=== PATIENT | female | born 1935 | race Caucasian/White ===

== ENCOUNTER → 2019-02-02 | Outpatient (CLI) | payer MEDICARE, BC ==
[2019-02-02 13:17] LABS: HGB 12.4 gm/dL (11.4-16.0); MCH 31.3 pg (25.0-35.0); MCHC 33.5 g/dL (31.0-37.0); MCV 93.5 fL (80.0-100.0); Mean Platelet Volume 6.4; Platelet Count 204 k/uL (150-450); RBC 3.95 m/uL (3.80-5.40); RDW 14.5 % (11.5-15.5); WBC 10.1 k/uL (3.8-10.6)
[2019-02-02 13:28] LABS: Potassium 4.8 mmol/L (3.5-5.1)
== END | disposition home or self-care (01) ==
LOC: LABPAT 12:06
PROVIDERS: ATTEND Internal Medicine Interventional Cardiology
DX: Z01.812 Encounter for preprocedural laboratory examination (principal); I10 Essential (primary) hypertension; I35.0 Nonrheumatic aortic (valve) stenosis
CPT/HCPCS: 80051; 82565; 84520; 85027

== ENCOUNTER → 2019-02-05 | Day surgery (SDC) | payer MEDICARE, BC ==
[2019-02-02 16:53] VITALS: BMI 37.9
[~2019-02-05] MED LIST: ALPRAZolam 0.25 MG TAB PO PRN; ALPRAZolam 0.5 MG TAB PO PRN; ASPIRIN 325 MG TAB PO ONE; ATORVASTATIN 80 MG TAB PO ONE; BENZOCAINE SPRAY 1 CAN MUCOUS MEM ONE; BENZOCAINE SPRAY 1 CAN TOPICAL PRN; HEPARIN SODIUM 1,000 UN/ML (10ML VL) IV ONE; HEPARIN SODIUM 1,000 UN/ML (10ML VL) ONE; IOPAMIDOL-370 125ML BTL INJ ONE; IV FLUID CONTINUATION 1,000 ML IV ONE; LIDOCAINE 1% INJ 10MG/ML (20 ML MDV) ONE; LIDOCAINE 1% INJ 10MG/ML (20 ML MDV) SQ ONE; MIDAZOLAM 2 MG/2 ML VIAL IV ONE; MIDAZOLAM 2 MG/2 ML VIAL IVP ONE; NITROGLYCERIN SL TABS 0.4 MG TAB SUBLINGUAL PRN; SODIUM CHLORIDE 0.9% 1,000 ML IV SCH; SODIUM CHLORIDE 0.9% 1,000 ML in EMPTY BAG 1 BAG IV ONE; VERAPAMIL 2.5 MG/ML 2 ML AMP ONE; fentaNYL (PF) 50 MCG/ML 2 ML AMP IVP ONE; fentaNYL (PF) 50 MCG/ML 2 ML AMP ONE; fentaNYL (PF) 50 MCG/ML 5 ML AMP IVP ONE
[2019-02-05 07:16] VITALS: RESP 18; TEMP 97.8
[2019-02-05 07:22] LABS: Glucose,Whole Blood 103 mg/dL (75-99)
[2019-02-05] MEDS: VERAPAMIL SYRINGE (5 MG/10 ML) INTRAARTER ONE ×2 (07:51→08:02)
--- NOTE | 2019-02-05 08:53 | CC ---
CARDIAC CATHETERIZATION REPORT DATE OF SERVICE: 02/05/2019. PROCEDURE: Coronary angiography. PERFORMED BY: Dr. Parag Parkinson. Moderate conscious sedation time was 17 minutes. Patient was administered Versed. Oxygen saturation, hemodynamics and EKG were monitored closely. CLINICAL INFORMATION: Mrs. Mariangel Schneider is 83-year-old lady with a history of severe aortic stenosis, moderate aortic regurgitation, hypertension, type 2 diabetes, and hyperlipidemia. She has been having symptoms of increasing shortness of breath. An echocardiogram recently revealed an increase in mean gradient with symptoms of shortness of breath and therefore she was advised coronary angiography. The rationale, risks, benefits, options were explained. PROCEDURE NOTE: Under local anesthesia and strict aseptic precautions, a 6-Estonian introducer was placed in the right radial artery. Using a JR4 and JL3.5 catheters, I performed coronary angiography, but I was unable to cross the aortic valve with the right Taniya catheter. The patient is scheduled to have a transesophageal echo today. The procedure was performed uneventfully. The sheath was taken out and a TR band applied as per protocol with a saturation of the fingers of the right hand of 94%. LV-gram was not performed and LV pressures were not checked. CORONARY ANGIOGRAPHY FINDINGS: RIGHT CORONARY ARTERY; A large dominant vessel. No significant disease. Distally bifurcates into a large PDA and PLV has only minor irregularities. No significant disease. LEFT MAIN CORONARY ARTERY: Short patent vessel, free of significant disease that bifurcates into LAD and circumflex. LEFT ANTERIOR DESCENDING CORONARY ARTERY: Good caliber vessel, extends along the anterior wall. Midportion has a mild narrowing of about 35% at the origin of a septal branch. There are smaller septal and good-sized diagonal branches that come off which are free of significant disease. LAD has mild calcification, no significant disease, 30%-35% mid lesion. LEFT POSTERIOR CIRCUMFLEX CORONARY ARTERY: Technically nondominant vessel. Good caliber and good distribution, gives off two obtuse marginal branches. No significant disease and a branch runs in the AV groove and comes out as a small distal branch. No significant disease in a good caliber and good distribution nondominant circumflex system. Left ventriculogram was not performed. FINAL IMPRESSION: 1. This patient does not have any significant obstructive coronary artery disease. She has a right dominant system. Left ventricular pressures were not checked. An left ventriculogram was not performed. The left anterior descending artery has a 35% lesion. Circumflex is free of significant disease. The dominant right coronary artery is free of significant disease. 2. Patient will have transesophageal echo today and based on findings, we will make further recommendations regarding aortic valve replacement. TAWANA / ZURIN: [id number] /
[2019-02-05 09:54] LABS: Glucose,Whole Blood 119 mg/dL (75-99)
--- NOTE | 2019-02-05 11:48 | P.TEE ---
Indications for Procedure(s): Aortic stenosis Date of Procedure: 02/05/19 Preoperative Diagnosis: Severe aortic stenosis Postoperative Diagnosis: Severe aortic stenosis, mild aortic regurgitation and mild mitral regurgitation. Moderate severe tricuspid regurgitation Procedure(s) Performed: ANALY examination Description of Procedure(s): INDICATION: Test is being done to assess aortic stenosis CONSENT:. Informed consent was obtained from patient and family verbally PROCEDURE: Patient was brought to the lab in a fasting state. She was prepped and draped in the usual fashion. She was given 2 mg of Versed and 50 mics of fentanyl for sedation. The throat was sprayed with Cetacaine. A lubricated Omni probe was introduced into the oropharynx and advanced into the esophagus. Multiple views were obtained. Patient tolerated the procedure well. Color, pulsed and continuous Doppler studies were performed. Saline contrast bubble injection was also performed. No immediate complications FINDINGS:. The aortic valve appears to be tricuspid and calcified with restricted opening excursion. By planimetry valve area 0.8 cm was obtained. A peak gradient of about 64 with a mean of 40 was obtained across the aortic valve consistent with severe aortic stenosis. There is eccentric mild aortic regurgitation. Mitral valve structurally appears to be normal with mild central regurgitation. Tricuspid also is moderate regurgitation. The right ventricular systolic blood pressure is about 26-30. The left atrial appendage is free of any clot. There is no evidence of spontaneous shunt across intra-atrial septum. There is no crossing of the bubbles across the septum and no evidence of PFO. Left ventricular function is preserved. There is moderate plaque in the aorta IMPRESSION: #1. Severe aortic stenosis. #2. Mild aortic regurgitation #3. Mild tricuspid regurgitation. #4. Moderate tricuspid regurgitation. #5. There is no clot in the left atrial appendage. #6. No PFO #7. Preserved LV function. #8. Moderate plaque in the aorta PLAN: Possible aortic valve replacement with transcatheter approach
[2019-02-05 12:49] LABS: Glucose,Whole Blood 125 mg/dL (75-99)
[2019-02-05 13:39] VITALS: BP 115/55; PULSE 64
== END ==
LOC: CATHCVL 06:30
PROVIDERS: ATTEND Internal Medicine Interventional Cardiology
DX: I08.3 Combined rheumatic disorders of mitral, aortic and tricuspid valves (principal); I70.0 Atherosclerosis of aorta; I25.10 Atherosclerotic heart disease of native coronary artery without angina pectoris; E11.9 Type 2 diabetes mellitus without complications; I10 Essential (primary) hypertension; E78.00 Pure hypercholesterolemia, unspecified; E78.5 Hyperlipidemia, unspecified; J45.909 Unspecified asthma, uncomplicated; E66.9 Obesity, unspecified; Z68.37 Body mass index [BMI] 37.0-37.9, adult; Z72.0 Tobacco use; Z79.4 Long term (current) use of insulin; Z79.899 Other long term (current) drug therapy; Z79.890 Hormone replacement therapy
CPT/HCPCS: 93312; 93320; 93325; 93454; C1769; C1894; J2250; J2001; J3010; J1644

== ENCOUNTER 2019-04-17 00:17 | Emergency (ER) | payer MEDICARE, BC ==
[2019-04-17 00:39] VITALS: TEMP 98.2
[2019-04-17] MEDS ORDERED: OXYMETAZOLINE 0.05% NASL SPRAY 1 SPRAY BOTTLE NASAL STA (01:07)
[2019-04-17 01:47] VITALS: BP 132/66; PULSE 80; RESP 18
--- NOTE | 2019-04-17 02:23 | ED ---
General Adult HPI - General Chief complaint: ENT Stated complaint: nose bleed Time Seen by Provider: 04/17/19 00:43 Source: patient, RN notes reviewed, old records reviewed Mode of arrival: ambulatory Limitations: no limitations - History of Present Illness Initial comments: 84-year-old female patient presents to ED for chief complaint of right-sided epistaxis. Patient was that she has had approximate for: [place] today. Denies any headache or any pain anywhere. Denies any use of blood thinners. Denies any other complaints. Systemic: Pt denies fatigue, fever/chills, rash. Pt denies weakness, night sweats, weight loss. Neuro: Pt denies headache, visual disturbances, syncope or pre-syncope. HEENT: Pt denies ocular discharge or irritation, otalgia, rhinorrhea, pharyngitis or notable lymphadenopathy. Cardiopulmonary: Pt denies chest pain, SOB, heart palpitations, dyspnea on exertion. Abdominal/GI: Pt denies abdominal pain, n/v/d. : Pt denies dysuria, burning w/ urination, frequency/urgency. Denies new onset urinary or bowel incontinence. MSK: Pt denies myalgia, loss of strength or function in extremities. Neuro: Pt denies new onset weakness, paresthesias. - Related Data Home Medications Medication Instructions Recorded Confirmed Ascorbic Acid [Vitamin C] 500 mg PO DAILY 02/02/19 02/05/19 Biotin 5,000 mcg PO DAILY 02/02/19 02/05/19 Ergocalciferol [Vitamin D2] 50,000 unit PO Q14D 02/02/19 02/05/19 Fish Oil/Dha/Epa [Fish Oil 1,200 1 each PO DAILY 02/02/19 02/05/19 mg Fish Oil] Furosemide [Lasix] 20 mg PO QAM 02/02/19 02/05/19 INSULIN ASPART (NovoLOG) [NovoLOG 16 unit SQ AC-LUNCH 02/02/19 02/05/19 (formulary)] INSULIN ASPART (NovoLOG) [NovoLOG 30 unit SQ AC-BRKFST 02/02/19 02/05/19 (formulary)] INSULIN ASPART (NovoLOG) [NovoLOG 30 unit SQ AC-SUPPER 02/02/19 02/05/19 (formulary)] Insulin Glargine [Lantus] 40 unit SQ HS 02/02/19 02/05/19 Levothyroxine Sodium [Synthroid] 100 mcg PO DAILY 02/02/19 02/05/19 Lisinopril [Zestril] 10 mg PO QAM 02/02/19 02/05/19 Metoprolol Succinate (ER) [Toprol 25 mg PO QAM 02/02/19 02/05/19 Xl] Pioglitazone [Actos] 15 mg PO QAM 02/02/19 02/05/19 Protandim 1 tab PO DAILY 02/02/19 Simvastatin [Zocor] 40 mg PO HS 02/02/19 02/05/19 metFORMIN HCL [Glucophage] 1,000 mg PO BID 02/02/19 02/05/19 Allergies Allergy/AdvReac Type Severity Reaction Status Date / Time Latex, Natural Rubber Allergy red skin Verified 04/17/19 00:39 Review of Systems ROS Statement: Those systems with pertinent positive or pertinent negative responses have been documented in the HPI. ROS Other: All systems not noted in ROS Statement are negative. Past Medical History Past Medical History: Cancer, Diabetes Mellitus, Hyperlipidemia, Hypertension, Osteoarthritis (OA), Sleep Apnea/CPAP/BIPAP, Thyroid Disorder Additional Past Medical History / Comment(s): uses CPAP, SOB w/exertion, hx. heart murmur, hx. breast cancer insitu 2004, frequent loose stools History of Any Multi-Drug Resistant Organisms: None Reported Past Surgical History: Appendectomy, Breast Surgery, Hysterectomy Additional Past Surgical History / Comment(s): symone. mastectomy Past Anesthesia/Blood Transfusion Reactions: No Reported Reaction Past Psychological History: No Psychological Hx Reported Smoking Status: Former smoker Past Alcohol Use History: None Reported Past Drug Use History: None Reported General Exam - General Exam Comments Initial Comments: Constitutional: NAD, AOX3, Pt has pleasant affect. HEENT: NC/AT, trachea midline, neck supple, no lymphadenopathy. Posterior pharynx non erythematous, without exudates. External ears appear normal, without discharge. Mucous membranes moist. Eyes PERRLA, EOM intact. There is no scleral icterus. No pallor noted. Mild anterior epistaxis noted from right NARE. Cardiopulmonary: RRR, no murmurs, rubs or gallops, no JVD noted. Lungs CTAB in anterior and posterior dewitt. No peripheral edema. Abdominal exam: Abdomen soft and non-distended. Abdomen non-tender to palpation in all 4 quadrants. Bowel sounds active in LLQ. No hepatosplenomegaly. No ecchymosis Neuro: CN II-XII intact. No nuchal rigidity. No raccon eyes, no perla sign, no hemotympanum. No cervical spinal tenderness. MSK: No posterior calf tenderness bilaterally, homans sign negative bilaterally. Posterior tibialis and radial pulse +2 bilaterally. Sensation intact in upper and lower extremities. Full active ROM in upper and lower extremities, 5/5 stregnth. Limitations: no limitations Course Vital Signs 04/17/19 04/17/19 00:35 01:38 Temperature 98.2 F Pulse Rate 60 80 Respiratory 17 18 Rate Blood Pressure 113/63 132/66 O2 Sat by Pulse 95 98 Oximetry Medical Decision Making - Medical Decision Making 84-year-old female patient presents to ED for chief complaint of right anterior epistaxis. Patient vital signs are stable. Physical exam didn't display a mild amount of bleeding noted from right JACI. Patient was administered Afrin spray, nasal clamp. Bleeding did resolve. Advised patient to use a humidifier. Patient follow up with primary care provider tomorrow. Return to ER if condition worsens. Case discussed with Dr. Noel. Disposition Clinical Impression: Anterior epistaxis, Nosebleed Disposition: HOME SELF-CARE Condition: Stable Instructions (If sedation given, give patient instructions): Nosebleed (ED) Additional Instructions: If symptoms return administered 2 sprays of Afrin into affected nostril followed by 30 minutes of nasal clamp. Follow up with primary care provider tomorrow. Mention this to your mine engineering manager prior to surgery. Return to ER if condition worsens. Is patient prescribed a controlled substance at d/c from ED?: No Referrals: Nicolás Morales DO [Primary Care Provider] - 1-2 days
== END 2019-04-17 04:09 | disposition home or self-care (01) ==
LOC: EC 00:17
DX: R04.0 Epistaxis (principal); E11.9 Type 2 diabetes mellitus without complications; E78.5 Hyperlipidemia, unspecified; I10 Essential (primary) hypertension; E07.9 Disorder of thyroid, unspecified; G47.30 Sleep apnea, unspecified; Z99.89 Dependence on other enabling machines and devices; Z87.891 Personal history of nicotine dependence; Z85.3 Personal history of malignant neoplasm of breast; Z79.4 Long term (current) use of insulin; Z79.890 Hormone replacement therapy; Z79.899 Other long term (current) drug therapy; Z91.040 Latex allergy status
CPT/HCPCS: 99283

== ENCOUNTER 2019-04-17 11:17 | Emergency (ER) | payer MEDICARE, BC ==
[2019-04-17 11:23] VITALS: RESP 16
[2019-04-17 11:38] LABS: Glucose,Whole Blood 221 mg/dL (75-99)
[2019-04-17] MEDS ORDERED: SILVER NITRATE APPLICATOR 1 EACH STICK..EA. TOPICAL STA (12:24)
[2019-04-17] MEDS ORDERED: LIDOCAINE/EPINEPHR/TETRACAINE 5 ML BOTTLE TOPICAL ONE (12:24)
--- NOTE | 2019-04-17 12:48 | ED ---
ENT HPI - General Chief complaint: ENT Stated complaint: Nosebleed Time Seen by Provider: 04/17/19 11:46 Source: patient, RN notes reviewed, old records reviewed Mode of arrival: ambulatory Limitations: no limitations - History of Present Illness Initial comments: Patient is an 10-year-old female not on blood thinners. Presents for reevaluation for intermittent nosebleeds over the past day. Patient arriving here has had her nosebleed to stop. She was here yesterday but it re-bled a few times since then. Patient is here requesting cautery for nosebleed. Patient states that she's not swelling any blood at this time. Has been stable. She's not had a chance to get a humidifier in her house at this time. - Related Data Home Medications Medication Instructions Recorded Confirmed Ascorbic Acid [Vitamin C] 500 mg PO DAILY 02/02/19 02/05/19 Biotin 5,000 mcg PO DAILY 02/02/19 02/05/19 Ergocalciferol [Vitamin D2] 50,000 unit PO Q14D 02/02/19 02/05/19 Fish Oil/Dha/Epa [Fish Oil 1,200 1 each PO DAILY 02/02/19 02/05/19 mg Fish Oil] Furosemide [Lasix] 20 mg PO QAM 02/02/19 02/05/19 INSULIN ASPART (NovoLOG) [NovoLOG 16 unit SQ AC-LUNCH 02/02/19 02/05/19 (formulary)] INSULIN ASPART (NovoLOG) [NovoLOG 30 unit SQ AC-BRKFST 02/02/19 02/05/19 (formulary)] INSULIN ASPART (NovoLOG) [NovoLOG 30 unit SQ AC-SUPPER 02/02/19 02/05/19 (formulary)] Insulin Glargine [Lantus] 40 unit SQ HS 02/02/19 02/05/19 Levothyroxine Sodium [Synthroid] 100 mcg PO DAILY 02/02/19 02/05/19 Lisinopril [Zestril] 10 mg PO QAM 02/02/19 02/05/19 Metoprolol Succinate (ER) [Toprol 25 mg PO QAM 02/02/19 02/05/19 Xl] Pioglitazone [Actos] 15 mg PO QAM 02/02/19 02/05/19 Protandim 1 tab PO DAILY 02/02/19 Simvastatin [Zocor] 40 mg PO HS 02/02/19 02/05/19 metFORMIN HCL [Glucophage] 1,000 mg PO BID 02/02/19 02/05/19 Previous Rx's Medication Instructions Recorded Sodium Chloride [Saline Mist] 1 spray EA NOSTRIL QID #1 bottle 04/17/19 Allergies Allergy/AdvReac Type Severity Reaction Status Date / Time Latex, Natural Rubber Allergy red skin Verified 04/17/19 11:22 Review of Systems ROS Statement: Those systems with pertinent positive or pertinent negative responses have been documented in the HPI. ROS Other: All systems not noted in ROS Statement are negative. Past Medical History Past Medical History: Cancer, Diabetes Mellitus, Hyperlipidemia, Hypertension, Osteoarthritis (OA), Sleep Apnea/CPAP/BIPAP, Thyroid Disorder Additional Past Medical History / Comment(s): uses CPAP, SOB w/exertion, hx. heart murmur, hx. breast cancer insitu 2004, frequent loose stools History of Any Multi-Drug Resistant Organisms: None Reported Past Surgical History: Appendectomy, Breast Surgery, Hysterectomy Additional Past Surgical History / Comment(s): symone. mastectomy Past Anesthesia/Blood Transfusion Reactions: No Reported Reaction Past Psychological History: No Psychological Hx Reported Smoking Status: Former smoker Past Alcohol Use History: None Reported Past Drug Use History: None Reported General Exam - General Exam Comments Initial Comments: 84-year-old female. Alert and oriented 3. Limitations: no limitations General appearance: alert, in no apparent distress Head exam: Present: atraumatic, normocephalic, normal inspection Eye exam: Present: normal appearance, PERRL, EOMI. Absent: scleral icterus, co njunctival injection, periorbital swelling ENT exam: Present: normal exam, mucous membranes moist, other (Dry blood in nares, evidence of small bleeidng vesssel R nare) Neck exam: Present: normal inspection. Absent: tenderness, meningismus, lymphadenopathy Respiratory exam: Present: normal lung sounds bilaterally. Absent: respiratory distress, wheezes, rales, rhonchi, stridor Cardiovascular Exam: Present: regular rate, normal rhythm, normal heart sounds. Absent: systolic murmur, diastolic murmur, rubs, gallop, clicks GI/Abdominal exam: Present: soft, normal bowel sounds. Absent: distended, tenderness, guarding, rebound, rigid Extremities exam: Present: normal inspection, full ROM, normal capillary refill. Absent: tenderness, pedal edema, joint swelling, calf tenderness Back exam: Present: normal inspection Neurological exam: Present: alert Psychiatric exam: Present: normal affect, normal mood Skin exam: Present: warm, dry, intact, normal color. Absent: rash Course Vital Signs 04/17/19 11:21 Temperature 98.3 F Pulse Rate 64 Respiratory 16 Rate Blood Pressure 138/65 O2 Sat by Pulse 97 Oximetry Procedures - Procedures Initial comment: 10-year-old female had a small bleeding from her right naris. Lidocaine with epinephrine was instilled, ball. It was then used with one silver nitrate sick to cause cauterize the small bleed. Tolerated procedure well. No palpitations. Bleeding resolved. Medical Decision Making - Medical Decision Making 10-year-old female with intermittent nosebleeds. Requesting nasal cautery she was here yesterday and discharged with Afrin. She still had some intermittent bleeds. She has a scheduled TAVR procedure upcoming and does not want to have nasal packing. Upon arrival her bleeding has slowed. She does have evidence of one small bleed from the right ear. Waking with epinephrine was instilled, and silver nitrate was used to cauterize near. Patient tolerated procedure well. I discussed she had an further bleeding to the cramp lamp for 20 minutes into the importance of using humidifiers at her home. Patient also denies she is a thin amount of antibiotic ointment to the bilateral nares. Patient is agreeable to treatment plan will comply. Return parameters were discussed. - Lab Data Lab Results 04/17/19 Range/Units 11:37 POC Glucose (mg/dL) 221 H (75-99) mg/dL POC Glu [facility] Justice ID Nina Yee Disposition Clinical Impression: Anterior epistaxis Disposition: HOME SELF-CARE Condition: Good Instructions (If sedation given, give patient instructions): Nosebleed (ED) Additional Instructions: If there is any further bleeding please apply the nasal clamp after an sling Afrin spray and holding pressure for 15-20 minutes. Patient should use humidifier around her home. All sees a thin film of antibiotic ointment on a Q- tip and applied to bilateral nares gently twice a day. Please use medication as discussed. Please return to the emergency room if your symptoms increase or w orsen or for any other concerns. Prescriptions: Sodium Chloride [Saline Mist] 1 spray EA NOSTRIL QID #1 bottle Is patient prescribed a controlled substance at d/c from ED?: No Referrals: Nicolás Morales DO [Primary Care Provider] - 1-2 days Time of Disposition: 13:20
[2019-04-17 13:42] VITALS: BP 137/81; PULSE 66; TEMP 97.9
== END 2019-04-17 13:30 | disposition home or self-care (01) ==
LOC: EC 11:17
DX: R04.0 Epistaxis (principal); E11.9 Type 2 diabetes mellitus without complications; E78.5 Hyperlipidemia, unspecified; I10 Essential (primary) hypertension; E07.9 Disorder of thyroid, unspecified; G47.30 Sleep apnea, unspecified; Z87.891 Personal history of nicotine dependence; Z91.040 Latex allergy status; Z79.4 Long term (current) use of insulin; Z79.890 Hormone replacement therapy; Z79.899 Other long term (current) drug therapy; Z85.3 Personal history of malignant neoplasm of breast; Z90.13 Acquired absence of bilateral breasts and nipples; Z99.89 Dependence on other enabling machines and devices
CPT/HCPCS: 30901; 36415; 99283; 99284

== ENCOUNTER 2019-04-17 14:03 | Emergency (ER) | payer MEDICARE, BC ==
[2019-04-17] MEDS ORDERED: SILVER NITRATE APPLICATOR 1 EACH STICK..EA. TOPICAL STA (14:57)
[2019-04-17] MEDS ORDERED: TRANEXAMIC ACID 1,000 MG/10 ML VIAL IRRIGATION ONE (15:00)
--- NOTE | 2019-04-17 15:37 | ED ---
ENT HPI - General Chief complaint: ENT Stated complaint: Nose Bleed Time Seen by Provider: 04/17/19 14:31 Source: patient, RN notes reviewed, old records reviewed Mode of arrival: ambulatory Limitations: no limitations - History of Present Illness Initial comments: Patient is an 10-year-old female presents today for reevaluation for nosebleed. Patient was seen, nasal cautery and, when she was discharged she started have some bleeding in the waiting room. Upon returning back to the ER if it was suite she had no further bleeding and had started. She is concerned when she ambulates or gets up and walks that she has rebleeding. Patient is not on blood thinners. She does not want have nasal packing she is scheduled for a TAVR procedure on Friday. Denies dizziness or lightheadedness. Denies chest pain. - Related Data Home Medications Medication Instructions Recorded Confirmed Ascorbic Acid [Vitamin C] 500 mg PO DAILY 02/02/19 02/05/19 Biotin 5,000 mcg PO DAILY 02/02/19 02/05/19 Ergocalciferol [Vitamin D2] 50,000 unit PO Q14D 02/02/19 02/05/19 Fish Oil/Dha/Epa [Fish Oil 1,200 1 each PO DAILY 02/02/19 02/05/19 mg Fish Oil] Furosemide [Lasix] 20 mg PO QAM 02/02/19 02/05/19 INSULIN ASPART (NovoLOG) [NovoLOG 16 unit SQ AC-LUNCH 02/02/19 02/05/19 (formulary)] INSULIN ASPART (NovoLOG) [NovoLOG 30 unit SQ AC-BRKFST 02/02/19 02/05/19 (formulary)] INSULIN ASPART (NovoLOG) [NovoLOG 30 unit SQ AC-SUPPER 02/02/19 02/05/19 (formulary)] Insulin Glargine [Lantus] 40 unit SQ HS 02/02/19 02/05/19 Levothyroxine Sodium [Synthroid] 100 mcg PO DAILY 02/02/19 02/05/19 Lisinopril [Zestril] 10 mg PO QAM 02/02/19 02/05/19 Metoprolol Succinate (ER) [Toprol 25 mg PO QAM 02/02/19 02/05/19 Xl] Pioglitazone [Actos] 15 mg PO QAM 02/02/19 02/05/19 Protandim 1 tab PO DAILY 02/02/19 Simvastatin [Zocor] 40 mg PO HS 02/02/19 02/05/19 metFORMIN HCL [Glucophage] 1,000 mg PO BID 02/02/19 02/05/19 Previous Rx's Medication Instructions Recorded Sodium Chloride [Saline Mist] 1 spray EA NOSTRIL QID #1 bottle 04/17/19 Allergies Allergy/AdvReac Type Severity Reaction Status Date / Time Latex, Natural Rubber Allergy red skin Verified 04/17/19 11:22 Review of Systems ROS Statement: Those systems with pertinent positive or pertinent negative responses have been documented in the HPI. ROS Other: All systems not noted in ROS Statement are negative. Past Medical History Past Medical History: Cancer, Diabetes Mellitus, Hyperlipidemia, Hypertension, Osteoarthritis (OA), Sleep Apnea/CPAP/BIPAP, Thyroid Disorder Additional Past Medical History / Comment(s): uses CPAP, SOB w/exertion, hx. heart murmur, hx. breast cancer insitu 2004, frequent loose stools History of Any Multi-Drug Resistant Organisms: None Reported Past Surgical History: Appendectomy, Breast Surgery, Hysterectomy Additional Past Surgical History / Comment(s): symone. mastectomy Past Anesthesia/Blood Transfusion Reactions: No Reported Reaction Past Psychological History: No Psychological Hx Reported Smoking Status: Former smoker Past Alcohol Use History: None Reported Past Drug Use History: None Reported General Exam - General Exam Comments Initial Comments: Pleasant 84-year-old female. No distress. Limitations: no limitations General appearance: alert, in no apparent distress Head exam: Present: atraumatic, normocephalic, normal inspection Eye exam: Present: normal appearance, PERRL, EOMI. Absent: scleral icterus, conjunctival injection, periorbital swelling ENT exam: Present: normal exam, mucous membranes moist Neck exam: Present: normal inspection, other (Minimal epistaxis on the right and her. Previous cautery is appreciated.). Absent: tenderness, meningismus, lymphadenopathy Respiratory exam: Present: normal lung sounds bilaterally. Absent: respiratory distress, wheezes, rales, rhonchi, stridor Cardiovascular Exam: Present: regular rate, normal rhythm, normal heart sounds. Absent: systolic murmur, diastolic murmur, rubs, gallop, clicks GI/Abdominal exam: Present: soft, normal bowel sounds. Absent: distended, tenderness, guarding, rebound, rigid Extremities exam: Present: normal inspection, full ROM, normal capillary refill. Absent: tenderness, pedal edema, joint swelling, calf tenderness Back exam: Present: normal inspection Neurological exam: Present: alert, oriented X3, CN II-XII intact Psychiatric exam: Present: normal affect, normal mood Course Vital Signs 04/17/19 04/17/19 14:18 15:56 Temperature 98.3 F 98.1 F Pulse Rate 61 69 Respiratory 16 18 Rate Blood Pressure 108/66 132/57 O2 Sat by Pulse 97 97 Oximetry Procedures - Procedures Initial comment: Nosebleed was stopped with instilling a Ball with T X-Ray and a Clamp Held over the Nose for 5 Minutes. Patient Then Had the Nose Clamp Removed and Another Stick of Silver Nitrate Is to Recauterize Area That Was Bleeding. Bleeding Was Controlled at That Time. Medical Decision Making - Medical Decision Making 10-year-old presents for evaluation for nosebleed. Upcoming to have her procedure and requests not to have packing. Patient bleeding had R he slowed upon arriving back to the emergency room. I discussed we can instill TXA and use cautery again. Patient underwent procedure and had no further bleeding. Ambulating around the emergency department and no further bleeding. Discussed she had any further symptoms to hold nasal clamp and apply pressure for 15 minutes. Patient is able to plan. Return parameters were discussed. Disposition Clinical Impression: Anterior epistaxis Disposition: HOME SELF-CARE Condition: Good Instructions (If sedation given, give patient instructions): Nosebleed (ED) Additional Instructions: Hold nasal clamp together if going from sitting to standing or doing any extensive activity. Use nasal spray as discussed. Return to the emergency department if any alarming signs or symptoms occur. Is patient prescribed a controlled substance at d/c from ED?: No Referrals: Nicolás Morales DO [Primary Care Provider] - 1-2 days Time of Disposition: 15:36
[2019-04-17 15:57] VITALS: BP 132/57; PULSE 69; RESP 18; TEMP 98.1
== END 2019-04-17 15:57 | disposition home or self-care (01) ==
LOC: EC 14:03
DX: R04.0 Epistaxis (principal); E11.9 Type 2 diabetes mellitus without complications; E78.5 Hyperlipidemia, unspecified; I10 Essential (primary) hypertension; E07.9 Disorder of thyroid, unspecified; G47.30 Sleep apnea, unspecified; Z87.891 Personal history of nicotine dependence; Z91.040 Latex allergy status; Z79.4 Long term (current) use of insulin; Z79.890 Hormone replacement therapy; Z79.899 Other long term (current) drug therapy; Z85.3 Personal history of malignant neoplasm of breast; Z90.13 Acquired absence of bilateral breasts and nipples; Z99.89 Dependence on other enabling machines and devices
CPT/HCPCS: 30901; 99283

== ENCOUNTER 2021-07-20 22:22 | Emergency (ER) | payer MEDICARE, BC ==
[2021-07-20] MEDS ORDERED: ACETAMINOPHEN TAB 325 MG TAB PO STA (22:51)
[2021-07-20] MEDS ORDERED: SODIUM CHLORIDE 0.9% 1,000 ML IV SCH (23:00)
[2021-07-20 23:15] VITALS: TEMP 99.5
[2021-07-20 23:23] LABS: Basophils % (A) 0 %; Eosinophils # (A) 0.1 k/uL (0-0.7); Eosinophils % (A) 1 %; HCT 32.1 % (34.0-46.0); HGB 10.9 gm/dL (11.4-16.0); Lymphocytes # (A) 1.5 k/uL (1.0-4.8); Lymphocytes % (A) 21 %; MCH 32.4 pg (25.0-35.0); MCHC 34.1 g/dL (31.0-37.0); MCV 95.2 fL (80.0-100.0); Mean Platelet Volume 8.3; Monocytes # (A) 0.3 k/uL (0-1.0); Monocytes % (A) 5 %; Neutrophils # (A) 5.2 k/uL (1.3-7.7); Neutrophils % (A) 72 %; Platelet Count 135 k/uL (150-450); RBC 3.37 m/uL (3.80-5.40); RDW 14.5 % (11.5-15.5); WBC 7.3 k/uL (3.8-10.6)
--- NOTE | 2021-07-20 23:26 | ED ---
General Adult HPI - General Chief complaint: Weakness Stated complaint: Chills Time Seen by Provider: 07/20/21 22:51 Source: patient Mode of arrival: ambulatory Limitations: no limitations - History of Present Illness Initial comments: Giselle is an 86-year-old woman presenting to have evaluation for chills. She states she has been feeling like she's had chills all day. The patient denies any specific symptoms of infection. They became concerned at home when things did not resolve and family notes that she has had previous urinary tract infections without many symptoms so they present to have evaluation. Patient denies congestion, cough, sore throat. No vomiting or diarrhea. No frequency, urgency, dysuria. No hematuria. She has not had a rash. -: hour(s) Severity scale (1-10): 0 Consistency: constant Improves with: none Worsens with: none Associated Symptoms: denies other symptoms, fever/chills Treatments Prior to Arrival: none - Related Data Home Medications Medication Instructions Recorded Confirmed Ascorbic Acid [Vitamin C] 500 mg PO DAILY 02/02/19 02/05/19 Biotin [Biotin Disolve] 5,000 mcg PO DAILY 02/02/19 02/05/19 Ergocalciferol [Vitamin D2] 50,000 unit PO Q14D 02/02/19 02/05/19 Fish Oil/Dha/Epa [Fish Oil 1,200 1 each PO DAILY 02/02/19 02/05/19 mg Fish Oil] Furosemide [Lasix] 20 mg PO QAM 02/02/19 02/05/19 INSULIN ASPART (NovoLOG) [NovoLOG 16 unit SQ AC-LUNCH 02/02/19 02/05/19 (formulary)] INSULIN ASPART (NovoLOG) [NovoLOG 30 unit SQ AC-BRKFST 02/02/19 02/05/19 (formulary)] INSULIN ASPART (NovoLOG) [NovoLOG 30 unit SQ AC-SUPPER 02/02/19 02/05/19 (formulary)] Insulin Glargine [Lantus] 40 unit SQ HS 02/02/19 02/05/19 Levothyroxine Sodium [Synthroid] 100 mcg PO DAILY 02/02/19 02/05/19 Metoprolol Succinate (ER) [Toprol 25 mg PO QAM 02/02/19 02/05/19 Xl] Pioglitazone [Actos] 15 mg PO QAM 02/02/19 02/05/19 Protandim 1 tab PO DAILY 02/02/19 Simvastatin [Zocor] 40 mg PO HS 02/02/19 02/05/19 lisinopriL [Zestril] 10 mg PO QAM 02/02/19 02/05/19 metFORMIN HCL [Glucophage] 1,000 mg PO BID 02/02/19 02/05/19 Previous Rx's Medication Instructions Recorded Sodium Chloride [Saline Mist] 1 spray EA NOSTRIL QID #1 bottle 04/17/19 Cephalexin [Keflex] 500 mg PO Q6HR #28 cap 07/21/21 Allergies Allergy/AdvReac Type Severity Reaction Status Date / Time Latex, Natural Rubber Allergy red skin Verified 07/20/21 22:29 Review of Systems ROS Statement: Those systems with pertinent positive or pertinent negative responses have been documented in the HPI. ROS Other: All systems not noted in ROS Statement are negative. Constitutional: Reports: chills, weakness. Denies: fever ENT: Denies: ear pain, throat pain, congestion Respiratory: Denies: cough, dyspnea Cardiovascular: Denies: chest pain, palpitations, edema Gastrointestinal: Denies: abdominal pain, nausea, vomiting, diarrhea Genitourinary: Denies: dysuria, frequency, hematuria Musculoskeletal: Denies: back pain Skin: Denies: rash Neurological: Denies: headache, weakness Past Medical History Past Medical History: Cancer, Diabetes Mellitus, Hyperlipidemia, Hypertension, Osteoarthritis (OA), Sleep Apnea/CPAP/BIPAP, Thyroid Disorder Additional Past Medical History / Comment(s): uses CPAP, SOB w/exertion, hx. heart murmur, hx. breast cancer insitu 2004, frequent loose stools History of Any Multi-Drug Resistant Organisms: None Reported Past Surgical History: Appendectomy, Breast Surgery, Hysterectomy Additional Past Surgical History / Comment(s): symone. mastectomy Past Anesthesia/Blood Transfusion Reactions: No Reported Reaction Past Psychological History: No Psychological Hx Reported Smoking Status: Never smoker Past Alcohol Use History: None Reported Past Drug Use History: None Reported General Exam Limitations: no limitations General appearance: alert, in no apparent distress Head exam: Present: atraumatic, normocephalic Eye exam: Present: normal appearance. Absent: scleral icterus, conjunctival injection ENT exam: Present: normal oropharynx Neck exam: Present: normal inspection, full ROM Respiratory exam: Present: normal lung sounds bilaterally. Absent: respiratory distress, wheezes, rales, rhonchi, stridor Cardiovascular Exam: Present: regular rate, normal rhythm, normal heart sounds. Absent: systolic murmur, diastolic murmur, rubs, gallop GI/Abdominal exam: Present: soft. Absent: distended, tenderness, guarding, rebound, rigid, mass Extremities exam: Present: normal inspection, normal capillary refill. Absent: pedal edema, calf tenderness Back exam: Present: normal inspection. Absent: CVA tenderness (R), CVA tenderness (L) Neurological exam: Present: alert Skin exam: Present: warm, dry, intact, normal color. Absent: rash Course Vital Signs 07/20/21 07/20/21 07/21/21 22:23 23:09 00:10 Temperature 100.3 F H 99.5 F Pulse Rate 85 74 81 Respiratory 16 18 18 Rate Blood Pressure 125/62 138/62 115/59 O2 Sat by Pulse 97 94 L 97 Oximetry 07/21/21 01:21 Temperature Pulse Rate 88 Respiratory 16 Rate Blood Pressure 128/61 O2 Sat by Pulse 96 Oximetry EKG Findings - EKG Results: EKG: sinus rhythm (Rate 72 bpm), normal axis - Blocks, [place], Hypertrophy, ST Abn: QRS axis and voltage: low voltage (<0.5 MV total QRS and <1.0 MV in each precordial lead) Medical Decision Making - Lab Data Result diagrams: 07/20/21 23:03 07/20/21 23:03 Lab Results 07/20/21 07/20/21 07/20/21 Range/Units 23:03 23:03 23:03 WBC 7.3 (3.8-10.6) k/uL RBC 3.37 L (3.80-5.40) m/uL Hgb 10.9 L (11.4-16.0) gm/dL Hct 32.1 L (34.0-46.0) % MCV 95.2 (80.0-100.0) fL MCH 32.4 (25.0-35.0) pg MCHC 34.1 (31.0-37.0) g/dL RDW 14.5 (11.5-15.5) % Plt Count 135 L (150-450) k/uL MPV 8.3 Neutrophils % 72 % Lymphocytes % 21 % Monocytes % 5 % Eosinophils % 1 % Basophils % 0 % Neutrophils # 5.2 (1.3-7.7) k/uL Lymphocytes # 1.5 (1.0-4.8) k/uL Monocytes # 0.3 (0-1.0) k/uL Eosinophils # 0.1 (0-0.7) k/uL Basophils # 0.0 (0-0.2) k/uL PT 10.7 (9.0-12.0) sec INR 1.0 (<1.2) APTT 24.1 (22.0-30.0) sec Sodium 134 L (137-145) mmol/L Potassium 4.4 (3.5-5.1) mmol/L Chloride 105 (98-107) mmol/L Carbon Dioxide 22 (22-30) mmol/L Anion Gap 7 mmol/L BUN 19 H (7-17) mg/dL Creatinine 0.88 (0.52-1.04) mg/dL Est GFR (CKD-EPI)AfAm 70 (>60 ml/min/1.73 sqM) Est GFR (CKD-EPI)NonAf 61 (>60 ml/min/1.73 sqM) Glucose 161 H (74-99) mg/dL Lactic Ac Sepsis Rflx Plasma Lactic Acid Guillermo (0.7-2.0) mmol/L Calcium 9.1 (8.4-10.2) mg/dL Total Bilirubin 0.6 (0.2-1.3) mg/dL AST 23 (14-36) U/L ALT 14 (4-34) U/L Alkaline Phosphatase 47 (38-126) U/L Troponin I (0.000-0.034) ng/mL Total Protein 6.6 (6.3-8.2) g/dL Albumin 3.5 (3.5-5.0) g/dL Urine Color Urine Appearance (Clear) Urine pH (5.0-8.0) Ur Specific [place] (1.001-1.035) Urine Protein (Negative) Urine Glucose (UA) (Negative) Urine Ketones (Negative) Urine Blood (Negative) Urine Nitrite (Negative) Urine Bilirubin (Negative) Urine Urobilinogen (<2.0) mg/dL Ur Leukocyte Esterase (Negative) Urine RBC (0-5) /hpf Urine WBC (0-5) /hpf Urine WBC Clumps (None) /hpf Ur Squamous Epith Cells (0-4) /hpf Urine Bacteria (None) /hpf Urine Mucus (None) /hpf 07/20/21 07/20/21 07/21/21 Range/Units 23:03 23:03 00:08 WBC (3.8-10.6) k/uL RBC (3.80-5.40) m/uL Hgb (11.4-16.0) gm/dL Hct (34.0-46.0) % MCV (80.0-100.0) fL MCH (25.0-35.0) pg MCHC (31.0-37.0) g/dL RDW (11.5-15.5) % Plt Count (150-450) k/uL MPV Neutrophils % % Lymphocytes % % Monocytes % % Eosinophils % % Basophils % % Neutrophils # (1.3-7.7) k/uL Lymphocytes # (1.0-4.8) k/uL Monocytes # (0-1.0) k/uL Eosinophils # (0-0.7) k/uL Basophils # (0-0.2) k/uL PT (9.0-12.0) sec INR (<1.2) APTT (22.0-30.0) sec Sodium (137-145) mmol/L Potassium (3.5-5.1) mmol/L Chloride (98-107) mmol/L Carbon Dioxide (22-30) mmol/L Anion Gap mmol/L BUN (7-17) mg/dL Creatinine (0.52-1.04) mg/dL Est GFR (CKD-EPI)AfAm (>60 ml/min/1.73 sqM) Est GFR (CKD-EPI)NonAf (>60 ml/min/1.73 sqM) Glucose (74-99) mg/dL Lactic Ac Sepsis Rflx Y Plasma Lactic Acid Guillermo 2.2 H* (0.7-2.0) mmol/L Calcium (8.4-10.2) mg/dL Total Bilirubin (0.2-1.3) mg/dL AST (14-36) U/L ALT (4-34) U/L Alkaline Phosphatase (38-126) U/L Troponin I <0.012 (0.000-0.034) ng/mL Total Protein (6.3-8.2) g/dL Albumin (3.5-5.0) g/dL Urine Color Urine Appearance (Clear) Urine pH (5.0-8.0) Ur Specific [place] (1.001-1.035) Urine Protein (Negative) Urine Glucose (UA) (Negative) Urine Ketones (Negative) Urine Blood (Negative) Urine Nitrite (Negative) Urine Bilirubin (Negative) Urine Urobilinogen (<2.0) mg/dL Ur Leukocyte Esterase (Negative) Urine RBC (0-5) /hpf Urine WBC (0-5) /hpf Urine WBC Clumps (None) /hpf Ur Squamous Epith Cells (0-4) /hpf Urine Bacteria (None) /hpf Urine Mucus (None) /hpf 07/21/21 Range/Units 00:40 WBC (3.8-10.6) k/uL RBC (3.80-5.40) m/uL Hgb (11.4-16.0) gm/dL Hct (34.0-46.0) % MCV (80.0-100.0) fL MCH (25.0-35.0) pg MCHC (31.0-37.0) g/dL RDW (11.5-15.5) % Plt Count (150-450) k/uL MPV Neutrophils % % Lymphocytes % % Monocytes % % Eosinophils % % Basophils % % Neutrophils # (1.3-7.7) k/uL Lymphocytes # (1.0-4.8) k/uL Monocytes # (0-1.0) k/uL Eosinophils # (0-0.7) k/uL Basophils # (0-0.2) k/uL PT (9.0-12.0) sec INR (<1.2) APTT (22.0-30.0) sec Sodium (137-145) mmol/L Potassium (3.5-5.1) mmol/L Chloride (98-107) mmol/L Carbon Dioxide (22-30) mmol/L Anion Gap mmol/L BUN (7-17) mg/dL Creatinine (0.52-1.04) mg/dL Est GFR (CKD-EPI)AfAm (>60 ml/min/1.73 sqM) Est GFR (CKD-EPI)NonAf (>60 ml/min/1.73 sqM) Glucose (74-99) mg/dL Lactic Ac Sepsis Rflx Plasma Lactic Acid Guillermo (0.7-2.0) mmol/L Calcium (8.4-10.2) mg/dL Total Bilirubin (0.2-1.3) mg/dL AST (14-36) U/L ALT (4-34) U/L Alkaline Phosphatase (38-126) U/L Troponin I (0.000-0.034) ng/mL Total Protein (6.3-8.2) g/dL Albumin (3.5-5.0) g/dL Urine Color Yellow Urine Appearance Cloudy H (Clear) Urine pH 5.5 (5.0-8.0) Ur Specific [place] 1.023 (1.001-1.035) Urine Protein 1+ H (Negative) Urine Glucose (UA) Negative (Negative) Urine Ketones Negative (Negative) Urine Blood Negative (Negative) Urine Nitrite Negative (Negative) Urine Bilirubin Negative (Negative) Urine Urobilinogen <2.0 (<2.0) mg/dL Ur Leukocyte Esterase Large H (Negative) Urine RBC 6 H (0-5) /hpf Urine WBC >182 H (0-5) /hpf Urine WBC Clumps Few H (None) /hpf Ur Squamous Epith Cells 44 H (0-4) /hpf Urine Bacteria Occasional H (None) /hpf Urine Mucus Occasional H (None) /hpf Disposition Clinical Impression: Urinary tract infection Disposition: HOME SELF-CARE Condition: Good Instructions (If sedation given, give patient instructions): Urinary Tract Infection in Women (ED) Prescriptions: Cephalexin [Keflex] 500 mg PO Q6HR #28 cap Is patient prescribed a controlled substance at d/c from ED?: No Referrals: Nicolás Morales DO [Primary Care Provider] - 1-2 days
[2021-07-20 23:29] LABS: Partial Thromboplastin Time 24.1 sec (22.0-30.0); Prothrombin Time 10.7 sec (9.0-12.0)
[2021-07-20] MEDS: SODIUM CHLORIDE 0.9% 500 ML 500 ML IV SCH (23:31)
--- NOTE | 2021-07-20 23:38 | XR ---
EXAMINATION TYPE: XR chest 2V DATE OF EXAM: 07/20/2021 COMPARISON: NONE HISTORY: Fever and weakness TECHNIQUE: 2 views FINDINGS: There is no heart failure nor confluent pneumonic infiltrate. Costophrenic angles are clear . There are chest leads. Bony thorax is intact. IMPRESSION: No active cardiopulmonary disease. Normal heart.
[2021-07-20 23:43] LABS: Albumin 3.5 g/dL (3.5-5.0); Calcium 9.1 mg/dL (8.4-10.2); Potassium 4.4 mmol/L (3.5-5.1); Total Bilirubin 0.6 mg/dL (0.2-1.3); Total Protein 6.6 g/dL (6.3-8.2)
[2021-07-21 00:56] LABS: Appearance,Urine Cloudy (Clear); Bacteria,Urine Occasional /hpf; Bilirubin,Urine Negative (Negative); Blood,Urine Negative (Negative); Color,Urine Yellow; Glucose,Urine (UA) Negative (Negative); Ketones,Urine Negative (Negative); Leukocyte Esterase,Urine Large (Negative); Mucus,Urine Occasional /hpf; Nitrite,Urine Negative (Negative); PH, Urine 5.5 (5.0-8.0); Protein,Urine 1+ (Negative); RBC,Urine 6 /hpf (0-5); Specific Gravity,Urine 1.023 (1.001-1.035); Squamous Epithelial Cell,Urine 44 /hpf (0-4); Urobilinogen,Urine <2.0 mg/dL (<2.0); WBC,Urine >182 /hpf (0-5)
[2021-07-21 01:23] VITALS: BP 128/61; PULSE 88; RESP 16
== END 2021-07-21 02:36 | disposition home or self-care (01) ==
LOC: EC 22:22
DX: N39.0 Urinary tract infection, site not specified (principal); E11.9 Type 2 diabetes mellitus without complications; I10 Essential (primary) hypertension; E78.5 Hyperlipidemia, unspecified; M19.90 Unspecified osteoarthritis, unspecified site; Z79.4 Long term (current) use of insulin; Z79.84 Long term (current) use of oral hypoglycemic drugs; Z79.890 Hormone replacement therapy; Z79.899 Other long term (current) drug therapy
CPT/HCPCS: 36415 ×2; 93005; 80053; 83605; 84484; 85025; 85610; 85730; 81001; 87040; 87086; 71046; 99284; 96365; J0696

== ENCOUNTER 2024-01-30 09:34 | Inpatient (IN) | payer MEDICARE, BC ==
--- NOTE | 2024-01-30 11:15 | ED ---
General Adult HPI - General Chief complaint: Weakness Stated complaint: Weakkness Time Seen by Provider: 01/30/24 09:49 Source: patient, RN notes reviewed Mode of arrival: EMS Limitations: no limitations - History of Present Illness Initial comments: Patient is an 88-year-old female presenting to the emergency department with concerns for general weakness. Symptoms have been present the past 2 weeks since she had her right lens repositioned. Patient is unable to get up on her own. Patient is only able to take a couple steps and has difficulty making it to the bathroom. No confusion. No isolated area of weakness. No history of similar symptoms previously. - Related Data Home Medications Medication Instructions Recorded Confirmed Ascorbic Acid [Vitamin C] 500 mg PO DAILY 02/02/19 02/05/19 Biotin [Biotin Disolve] 5,000 mcg PO DAILY 02/02/19 02/05/19 Ergocalciferol [Vitamin D2] 50,000 unit PO Q14D 02/02/19 02/05/19 Fish Oil/Dha/Epa [Fish Oil 1,200 1 each PO DAILY 02/02/19 02/05/19 mg Fish Oil] Furosemide [Lasix] 20 mg PO QAM 02/02/19 02/05/19 INSULIN ASPART (NovoLOG) [NovoLOG 16 unit SQ AC-LUNCH 02/02/19 02/05/19 (formulary)] INSULIN ASPART (NovoLOG) [NovoLOG 30 unit SQ AC-BRKFST 02/02/19 02/05/19 (formulary)] INSULIN ASPART (NovoLOG) [NovoLOG 30 unit SQ AC-SUPPER 02/02/19 02/05/19 (formulary)] Insulin Glargine [Lantus] 40 unit SQ HS 02/02/19 02/05/19 Levothyroxine Sodium [Synthroid] 100 mcg PO DAILY 02/02/19 02/05/19 Metoprolol Succinate (ER) [Toprol 25 mg PO QAM 02/02/19 02/05/19 Xl] Pioglitazone [Actos] 15 mg PO QAM 02/02/19 02/05/19 Protandim 1 tab PO DAILY 02/02/19 Simvastatin [Zocor] 40 mg PO HS 02/02/19 02/05/19 lisinopriL [Zestril] 10 mg PO QAM 02/02/19 02/05/19 metFORMIN HCL [Glucophage] 1,000 mg PO BID 02/02/19 02/05/19 Previous Rx's Medication Instructions Recorded Sodium Chloride [Saline Mist] 1 spray EA NOSTRIL QID #1 bottle 04/17/19 Cephalexin [Keflex] 500 mg PO Q6HR #28 cap 07/21/21 Allergies Allergy/AdvReac Type Severity Reaction Status Date / Time Latex, Natural Rubber Allergy red skin Verified 07/20/21 22:29 Review of Systems ROS Statement: Those systems with pertinent positive or pertinent negative responses have been documented in the HPI. ROS Other: All systems not noted in ROS Statement are negative. Constitutional: Denies: fever Eyes: Denies: eye pain, vision change ENT: Denies: ear pain Respiratory: Denies: cough Cardiovascular: Denies: chest pain Endocrine: Reports: fatigue Gastrointestinal: Denies: abdominal pain Genitourinary: Denies: dysuria Musculoskeletal: Denies: back pain Past Medical History Past Medical History: Cancer, Diabetes Mellitus, Hyperlipidemia, Hypertension, Osteoarthritis (OA), Sleep Apnea/CPAP/BIPAP, Thyroid Disorder Additional Past Medical History / Comment(s): uses CPAP, SOB w/exertion, hx. heart murmur, hx. breast cancer insitu 2004, frequent loose stools, blind in left eye History of Any Multi-Drug Resistant Organisms: None Reported Past Surgical History: Appendectomy, Breast Surgery, Hysterectomy Additional Past Surgical History / Comment(s): symone. mastectomy, eye surgery 01/15/24 - blind in left eye Past Anesthesia/Blood Transfusion Reactions: No Reported Reaction Past Psychological History: No Psychological Hx Reported Smoking Status: Never smoker Past Alcohol Use History: None Reported Past Drug Use History: None Reported General Exam Limitations: no limitations General appearance: alert, in no apparent distress Head exam: Present: normocephalic Eye exam: Present: PERRL, EOMI, other (Left-sided subconjunctival hemorrhage) ENT exam: Present: normal oropharynx Neck exam: Present: normal inspection. Absent: tenderness, meningismus Respiratory exam: Present: normal lung sounds bilaterally Cardiovascular Exam: Present: regular rate, normal rhythm GI/Abdominal exam: Present: soft. Absent: tenderness Extremities exam: Present: pedal edema (Patient states chronic). Absent: calf tenderness Neurological exam: Present: alert, oriented X3, CN II-XII intact. Absent: motor sensory deficit Expanded Neurological exam: Present: protecting the airway Patient oriented to: Present: person, place, time Speech: Present: fluid speech Cranial nerves: EOM's Intact: Normal Sensory exam: Upper Extremity Light Touch: Normal, Lower Extremity Light Touch: Normal Motor strength exam: RUE: 5, LUE: 5, RLE: 5, LLE: 5 Eye Response: (4) open spontaneously Motor Response: (6) obeys commands Verbal Response: (5) oriented Psychiatric exam: Present: normal affect, normal mood Skin exam: Present: normal color Course Vital Signs 01/30/24 01/30/24 09:37 09:40 Temperature 98.2 F Pulse Rate 68 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 First ray AV block with a [place] of 217.), sinus rhythm, normal QRS, normal ST/T Medical Decision Making - Medical Decision Making Was pt. sent in by a medical professional or institution (Dr. PA, PLANT INSPECTOR, urgent care, hospital, or intermediate...) When possible be specific @ -No Did you speak to anyone other than the patient for history (EMS, parent, family, police, friend...)? What history was obtained from this source @ -Daughter is present helps provide history including patient weakness and inability to get up and ambulate on her own Did you review nursing and triage notes (agree or disagree)? Why? @ -I reviewed and agree with nursing and triage notes Were old charts reviewed (outside hosp., previous admission, EMS record, old EKG, old radiological studies, urgent care reports/EKG's, intermediate records)? Report findings @ -No old charts were reviewed Differential Diagnosis (chest pain, altered mental status, abdominal pain women, abdominal pain men, vaginal bleeding, weakness, fever, dyspnea, syncope, headache, dizziness, GI bleed, back pain, seizure, CVA, palpatations, mental health, musculoskeletal)? @ -Differential Weakness: Hypoglycemia, shock, sepsis, hyponatremia, anemia, infection, TN, ETOH, adverse medicine reaction, overdose, stroke, this is not meant to be an all-inclusive list. EKG interpreted by me (3pts min.). @ -As above X-rays interpreted by me (1pt min.). @ -Chest x-ray shows some possible mild interstitial changes CT interpreted by me (1pt min.). @ -CT brain does not reveal acute U/S interpreted by me (1pt. min.). @ -None done What testing was considered but not performed or refused? (CT, X-rays, U/S, labs)? Why? @ -None What meds were considered but not given or refused? Why? @ -None Did you discuss the management of the patient with other professionals (professionals i.e. , PA, PLANT INSPECTOR, lab, RT, psych nurse, social economist, service architect, teacher, corporate ethics officer, registered nurse hh case manager)? Give summary @ -Case discussed with registered nurse hh case manager. Case also discussed with Dr. Chowdhury who will admit covering hospital call Was smoking cessation discussed for >3mins.? @ -No Was critical care preformed (if so, how long)? @ -No Were there social determinants of health that impacted care today? How? (Homelessness, low income, unemployed, alcoholism, drug addiction, transportation, low edu. Level, literacy, decrease access to med. care, half-way, rehab)? @ -No Was there de-escalation of care discussed even if they declined (Discuss DNR or withdrawal of care, Hospice)? DNR status @ -No What co-morbidities impacted this encounter? (DM, HTN, Smoking, COPD, CAD, Cancer, CVA, ARF, Chemo, Hep., AIDS, mental health diagnosis, sleep apnea, morbid obesity)? @ -None Was patient admitted / discharged? Hospital course, mention meds given and route, prescriptions, significant lab abnormalities, going to OR and other pertinent info. @ -Patient presents with general weakness and inability to get up on her own or walk on her own or take care of herself. Patient will be admitted for weakness and dehydration. Admission orders written Undiagnosed new problem with uncertain prognosis? @ -No Drug Therapy requiring intensive monitoring for toxicity (Heparin, Nitro, Insulin, Cardizem)? @ -No Were any procedures done? @ -No Diagnosis/symptom? @ -Weakness, dehydration Acute, or Chronic, or Acute on Chronic? @ -Acute, acute Uncomplicated (without systemic symptoms) or Complicated (systemic symptoms)? @ -Default Side effects of treatment? @ -No Exacerbation, Progression, or Severe Exacerbation? @ -No Poses a threat to life or bodily function? How? (Chest pain, USA, TN, pneumonia, PE, COPD, DKA, ARF, appy, cholecystitis, CVA, Diverticulitis, Homicidal, Suicidal, threat to staff... and all critical care pts) @ -No - Lab Data Result diagrams: 01/30/24 11:21 01/30/24 11:21 Lab Results 01/30/24 01/30/24 01/30/24 Range/Units 11:18 11:21 11:21 WBC 6.4 (3.8-10.6) k/uL RBC 3.39 L (3.80-5.40) m/uL Hgb 10.7 L (11.4-16.0) gm/dL Hct 32.6 L (34.0-46.0) % MCV 96.2 (80.0-100.0) fL MCH 31.4 (25.0-35.0) pg MCHC 32.6 (31.0-37.0) g/dL RDW 13.6 (11.5-15.5) % Plt Count 146 L (150-450) k/uL MPV 8.0 Neutrophils % 57 % Lymphocytes % 33 % Monocytes % 4 % Eosinophils % 2 % Basophils % 1 % Neutrophils # 3.7 (1.3-7.7) k/uL Lymphocytes # 2.1 (1.0-4.8) k/uL Monocytes # 0.3 (0-1.0) k/uL Eosinophils # 0.1 (0-0.7) k/uL Basophils # 0.0 (0-0.2) k/uL PT 10.6 (10.0-12.5) sec INR 1.0 (<1.2) APTT 23.2 (22.0-30.0) sec Sodium (137-145) mmol/L Potassium (3.5-5.1) mmol/L Chloride (98-107) mmol/L Carbon Dioxide (22-30) mmol/L Anion Gap mmol/L BUN (7-17) mg/dL Creatinine (0.52-1.04) mg/dL Est GFR (CKD-EPI)AfAm (>60 ml/min/1.73 sqM) Est GFR (CKD-EPI)NonAf (>60 ml/min/1.73 sqM) Glucose (74-99) mg/dL POC Glucose (mg/dL) 162 H (70-110) mg/dL POC Glu Visual Merchandising Director ID Yefri Miller Plasma Lactic Acid Guillermo (0.7-2.0) mmol/L Calcium (8.4-10.2) mg/dL Magnesium (1.6-2.3) mg/dL Total Bilirubin (0.2-1.3) mg/dL AST (14-36) U/L ALT (4-34) U/L Alkaline Phosphatase (38-126) U/L Troponin I (0.000-0.034) ng/mL Total Protein (6.3-8.2) g/dL Albumin (3.5-5.0) g/dL TSH (0.465-4.680) mIU/L Urine Color Urine Appearance (Clear) Urine pH (5.0-8.0) Ur Specific [place] (1.001-1.035) Urine Protein (Negative) Urine Glucose (UA) (Negative) Urine Ketones (Negative) Urine Blood (Negative) Urine Nitrite (Negative) Urine Bilirubin (Negative) Urine Urobilinogen (<2.0) mg/dL Ur Leukocyte Esterase (Negative) Urine WBC (0-5) /hpf Ur Squamous Epith Cells (0-4) /hpf 01/30/24 01/30/24 01/30/24 Range/Units 11:21 11:21 11:21 WBC (3.8-10.6) k/uL RBC (3.80-5.40) m/uL Hgb (11.4-16.0) gm/dL Hct (34.0-46.0) % MCV (80.0-100.0) fL MCH (25.0-35.0) pg MCHC (31.0-37.0) g/dL RDW (11.5-15.5) % Plt Count (150-450) k/uL MPV Neutrophils % % Lymphocytes % % Monocytes % % Eosinophils % % Basophils % % Neutrophils # (1.3-7.7) k/uL Lymphocytes # (1.0-4.8) k/uL Monocytes # (0-1.0) k/uL Eosinophils # (0-0.7) k/uL Basophils # (0-0.2) k/uL PT (10.0-12.5) sec INR (<1.2) APTT (22.0-30.0) sec Sodium 137 (137-145) mmol/L Potassium 4.5 (3.5-5.1) mmol/L Chloride 108 H (98-107) mmol/L Carbon Dioxide 25 (22-30) mmol/L Anion Gap 4 mmol/L BUN 24 H (7-17) mg/dL Creatinine 0.68 (0.52-1.04) mg/dL Est GFR (CKD-EPI)AfAm >90 (>60 ml/min/1.73 sqM) Est GFR (CKD-EPI)NonAf 79 (>60 ml/min/1.73 sqM) Glucose 149 H (74-99) mg/dL POC Glucose (mg/dL) (70-110) mg/dL POC Glu Visual Merchandising Director ID Plasma Lactic Acid Guillermo 1.3 (0.7-2.0) mmol/L Calcium 9.3 (8.4-10.2) mg/dL Magnesium 1.6 (1.6-2.3) mg/dL Total Bilirubin 0.4 (0.2-1.3) mg/dL AST 21 (14-36) U/L ALT 11 (4-34) U/L Alkaline Phosphatase 50 (38-126) U/L Troponin I <0.012 (0.000-0.034) ng/mL Total Protein 6.4 (6.3-8.2) g/dL Albumin 3.4 L (3.5-5.0) g/dL TSH 0.158 L (0.465-4.680) mIU/L Urine Color Urine Appearance (Clear) Urine pH (5.0-8.0) Ur Specific [place] (1.001-1.035) Urine Protein (Negative) Urine Glucose (UA) (Negative) Urine Ketones (Negative) Urine Blood (Negative) Urine Nitrite (Negative) Urine Bilirubin (Negative) Urine Urobilinogen (<2.0) mg/dL Ur Leukocyte Esterase (Negative) Urine WBC (0-5) /hpf Ur Squamous Epith Cells (0-4) /hpf 01/29/ Range/Units 11:21 WBC (3.8-10.6) k/uL RBC (3.80-5.40) m/uL Hgb (11.4-16.0) gm/dL Hct (34.0-46.0) % MCV (80.0-100.0) fL MCH (25.0-35.0) pg MCHC (31.0-37.0) g/dL RDW (11.5-15.5) % Plt Count (150-450) k/uL MPV Neutrophils % % Lymphocytes % % Monocytes % % Eosinophils % % Basophils % % Neutrophils # (1.3-7.7) k/uL Lymphocytes # (1.0-4.8) k/uL Monocytes # (0-1.0) k/uL Eosinophils # (0-0.7) k/uL Basophils # (0-0.2) k/uL PT (10.0-12.5) sec INR (<1.2) APTT (22.0-30.0) sec Sodium (137-145) mmol/L Potassium (3.5-5.1) mmol/L Chloride (98-107) mmol/L Carbon Dioxide (22-30) mmol/L Anion Gap mmol/L BUN (7-17) mg/dL Creatinine (0.52-1.04) mg/dL Est GFR (CKD-EPI)AfAm (>60 ml/min/1.73 sqM) Est GFR (CKD-EPI)NonAf (>60 ml/min/1.73 sqM) Glucose (74-99) mg/dL POC Glucose (mg/dL) (70-110) mg/dL POC Glu Visual Merchandising Director ID Plasma Lactic Acid Guillermo (0.7-2.0) mmol/L Calcium (8.4-10.2) mg/dL Magnesium (1.6-2.3) mg/dL Total Bilirubin (0.2-1.3) mg/dL AST (14-36) U/L ALT (4-34) U/L Alkaline Phosphatase (38-126) U/L Troponin I (0.000-0.034) ng/mL Total Protein (6.3-8.2) g/dL Albumin (3.5-5.0) g/dL TSH (0.465-4.680) mIU/L Urine Color Colorless Urine Appearance Clear (Clear) Urine pH 7.0 (5.0-8.0) Ur Specific [place] 1.010 (1.001-1.035) Urine Protein Negative (Negative) Urine Glucose (UA) Negative (Negative) Urine Ketones Negative (Negative) Urine Blood Negative (Negative) Urine Nitrite Negative (Negative) Urine Bilirubin Negative (Negative) Urine Urobilinogen <2.0 (<2.0) mg/dL Ur Leukocyte Esterase Moderate H (Negative) Urine WBC 7 H (0-5) /hpf Ur Squamous Epith Cells 3 (0-4) /hpf Disposition Clinical Impression: Weakness, Dehydration Disposition: ADMITTED IP TO THIS HOSP Is patient prescribed a controlled substance at d/c from ED?: No Referrals: Nicolás Morales DO [Primary Care Provider] - 1-2 days Time of Disposition: 14:55
[2024-01-30 11:32] LABS: Glucose,Whole Blood 162 mg/dL (70-110)
[2024-01-30 11:42] LABS: Basophils % (A) 1 %; Eosinophils # (A) 0.1 k/uL (0-0.7); Eosinophils % (A) 2 %; HCT 32.6 % (34.0-46.0); HGB 10.7 gm/dL (11.4-16.0); Lymphocytes # (A) 2.1 k/uL (1.0-4.8); Lymphocytes % (A) 33 %; MCH 31.4 pg (25.0-35.0); MCHC 32.6 g/dL (31.0-37.0); MCV 96.2 fL (80.0-100.0); Monocytes # (A) 0.3 k/uL (0-1.0); Monocytes % (A) 4 %; Neutrophils # (A) 3.7 k/uL (1.3-7.7); Neutrophils % (A) 57 %; Platelet Count 146 k/uL (150-450); RBC 3.39 m/uL (3.80-5.40); RDW 13.6 % (11.5-15.5); WBC 6.4 k/uL (3.8-10.6)
[2024-01-30 11:55] LABS: Partial Thromboplastin Time 23.2 sec (22.0-30.0); Prothrombin Time 10.6 sec (10.0-12.5)
[2024-01-30 11:58] LABS: Appearance,Urine Clear (Clear); Bilirubin,Urine Negative (Negative); Blood,Urine Negative (Negative); Color,Urine Colorless; Glucose,Urine (UA) Negative (Negative); Ketones,Urine Negative (Negative); Leukocyte Esterase,Urine Moderate (Negative); Nitrite,Urine Negative (Negative); Protein,Urine Negative (Negative); Squamous Epithelial Cell,Urine 3 /hpf (0-4); Urobilinogen,Urine <2.0 mg/dL (<2.0); WBC,Urine 7 /hpf (0-5)
[2024-01-30 12:05] LABS: ALT 11 U/L (4-34); AST 21 U/L (14-36); African American GFR (CKD) >90 (>60 ml/min/1.73 sqM); Albumin 3.4 g/dL (3.5-5.0); Alkaline Phosphatase 50 U/L (38-126); Anion Gap 4 mmol/L; Blood Urea Nitrogen 24 mg/dL (7-17); Calcium 9.3 mg/dL (8.4-10.2); Carbon Dioxide 25 mmol/L (22-30); Chloride 108 mmol/L (98-107); Glucose 149 mg/dL (74-99); Magnesium 1.6 mg/dL (1.6-2.3); Non-African American GFR(CKD) 79 (>60 ml/min/1.73 sqM); Potassium 4.5 mmol/L (3.5-5.1); Sodium 137 mmol/L (137-145); Total Bilirubin 0.4 mg/dL (0.2-1.3); Total Protein 6.4 g/dL (6.3-8.2)
--- NOTE | 2024-01-30 12:23 | CT ---
EXAMINATION TYPE: CT brain wo con CT DLP: 1094.4 mGycm, Automated exposure control for dose reduction was used. DATE OF EXAM: 01/30/2024 12:18 PM COMPARISON: None. CLINICAL INDICATION:Female, 88 years old with history of weakness, WEAKNESS TECHNIQUE: Brain: Multiple axial CT images of the brain were obtained without IV contrast. . Coronal and sagitta l reformats reviewed. FINDINGS: Brain: Extra-axial spaces: No abnormal extra-axial fluid collections. Ventricular system: Within normal limits Cerebral parenchyma: Age-appropriate cerebral atrophy. No acute intraparenchymal hemorrhage or mass e ffect. The aj-white junction is well differentiated. Scattered hypoattenuating areas are seen with in the periventricular white matter. Cerebellum: Unremarkable. Mass effect: No evidence of midline shift. Intracranial vasculature: Atherosclerotic calcifications of the intracranial vessels. Soft tissues: Normal. Calvarium/osseous structures: No depressed skull fracture. Paranasal sinuses and mastoid air cells: The mastoid air cells are clear. Moderate to severe opacific ation of the right sphenoid sinus. Remaining paranasal sinuses are clear. Visualized orbits: Left aphakia IMPRESSION: 1. No acute intracranial process. 2. Nonspecific white matter changes, likely secondary to chronic small vessel ischemic disease. 3. Right sphenoid moderate to severe mucosal sinus disease. [facility], , 01/30/2024 12:21 PM
--- NOTE | 2024-01-30 12:42 | XR ---
EXAMINATION TYPE: XR chest 2V DATE OF EXAM: 01/30/2024 12:37 PM COMPARISON: Chest radiographs from 07/20/2021 TECHNIQUE: XR chest 2V Frontal and lateral views of the chest. CLINICAL INDICATION:Female, 88 years old with history of Weakness; FINDINGS: Lungs/Pleura: There is no evidence of pleural effusion, focal consolidation, or pneumothorax. Pulmonary vascularity: Unremarkable. Heart/mediastinum: Cardiomediastinal silhouette is unremarkable. Atherosclerotic calcifications are seen in the aorta. Post surgical changes of the aortic root with stent graft. Musculoskeletal: Multiple level degenerative disc disease changes seen throughout the spine. Other findings: Right breast surgical clips. IMPRESSION: No acute cardiopulmonary disease/process. [facility], , 01/30/2024 12:39 PM
[2024-01-30] MEDS ORDERED: ACETAMINOPHEN TAB 325 MG TAB PO PRN (14:56)
[2024-01-30] MEDS ORDERED: NALOXONE 0.4 MG/ML 1 ML VIAL IV PRN (14:56)
[2024-01-30 15:01] LABS: T4, Free (Free Thyroxine) 1.51 ng/dL (0.78-2.19)
[2024-01-30] MEDS: SODIUM CHLORIDE 0.9% 1,000 ML IV SCH (16:50)
--- NOTE | 2024-01-30 18:21 | P.HPIM ---
History of Present Illness H&P Date: 01/30/24 88 year old F with PMH of HTN, HLD, Hypothyroidism, DM presents to the ED. She underwent eye surgery 2 weeks ago at [place]. Previously able to ambulate with a walker, now finds it difficult to bear weight. She denies any back pain, bladder or bowel incontinence or saddle anesthesia. She reports no other complaints. In the ED she underwent extensive evaluation. BP 125/78, HR 76, RR 18, T 98.2F, 98% on RA. CBC, CMP, Coag panel significant for RBC 3.39, Hg 10.7, Hct 32.6, Plt 146, Cl 108, BUN 24, glu 149. Trop < 0.012 x 1. TSH 0.158, FT4 1.51 Lactic acid 1.3. UA mod LE with 7 WBCs. EKG sinus rhythm with first degree AV block CXR negative. CT brain chronic small vessel disease, mucosal sinus disease. Patient is admitted for lower extremity weakness. General: non toxic, no distress, appears at stated age Derm: warm, dry Head: atraumatic, normocephalic, symmetric Eyes: EOMI, no lid lag, anicteric sclera Mouth: no lip lesion, mucus membranes moist Cardiovascular: S1S2 reg, no murmur Lungs: Clear to auscultation bilaterally, no rhonchi, no rales , no accessory muscle use Abd: Non distended. Non tender to palpation. Soft. Ext: no gross muscle atrophy, no edema, no contractures Neuro: no focal neuro deficits Psych: Alert, oriented, appropriate affect Based on my assessment of this patient, this patient meets a high complexity level of care. Debility and lower extremity weakness Normocytic anemia Thrombocytopenia Elevated BUN Subclinical hyperthyroidism Hypertension Dyslipidemia Diabetes mellitus Fall precautions. PT and OT consult. Restart home medications. CODE STATUS: FULL CODE. DVT Prophylaxis: Lovenox SQ. GI Prophylaxis: Designated medical POA if patient is not able to make medical decisions for themselves: I have reviewed the following hospice care consultant notes: ED note. I have reviewed the results of the following tests: As above. I have ordered the following tests: As above. I have discussed the care of this patient with the following independent historian: I have independently interpreted the following test below: EKG. I have discussed the management of this patient with the following physician: Past Medical History Past Medical History: Cancer, Diabetes Mellitus, Hyperlipidemia, Hypertension, Osteoarthritis (OA), Sleep Apnea/CPAP/BIPAP, Thyroid Disorder Additional Past Medical History / Comment(s): uses CPAP, SOB w/exertion, hx. heart murmur, hx. breast cancer insitu 2004, frequent loose stools, blind in left eye History of Any Multi-Drug Resistant Organisms: None Reported Past Surgical History: Appendectomy, Breast Surgery, Hysterectomy Additional Past Surgical History / Comment(s): symone. mastectomy, eye surgery 01/15/24 - blind in left eye Past Anesthesia/Blood Transfusion Reactions: No Reported Reaction Past Psychological History: No Psychological Hx Reported Smoking Status: Never smoker Past Alcohol Use History: None Reported Past Drug Use History: None Reported Medications and Allergies Home Medications Medication Instructions Recorded Confirmed Type Ascorbic Acid [Vitamin C] 500 mg PO DAILY 02/02/19 01/30/24 History Furosemide [Lasix] 20 mg PO Q2D 02/02/19 01/30/24 History Levothyroxine Sodium [Synthroid] 100 mcg PO DAILY 02/02/19 01/30/24 History Pioglitazone [Actos] 15 mg PO QAM 02/02/19 01/30/24 History Simvastatin [Zocor] 40 mg PO HS 02/02/19 01/30/24 History lisinopriL [Zestril] 10 mg PO QAM 02/02/19 01/30/24 History Aspirin 81 mg PO DAILY 01/30/24 01/30/24 History Biotin [Fpqf-Mkbt-Rmcnm] 10,000 mcg PO DAILY 01/30/24 01/30/24 History Brimonidine Tartrate [Alphagan P 1 drop RIGHT EYE BID 01/30/24 01/30/24 History 0.2% Ophth Soln] Cider Vinegar [Apple Cider Vinegar] 300 mg PO DAILY 01/30/24 01/30/24 History Ergocalciferol [Vitamin D2 (1250 1,250 mcg PO Q14D 01/30/24 01/30/24 History Mcg = 25743 Iu)] metFORMIN HCL [Glucophage] 500 mg PO HS 01/30/24 01/30/24 History prednisoLONE ACETATE 1% OPHTH 1 drop RIGHT EYE TID 01/30/24 01/30/24 History [Pred Forte 1%] Allergies Allergy/AdvReac Type Severity Reaction Status Date / Time Latex, Natural Rubber Allergy red skin Verified 01/30/24 15:12 Physical Exam Vitals: Vital Signs Temp Pulse Pulse Resp BP Pulse Ox 01/30/24 17:14 76 18 125/78 98 01/30/24 13:40 68 18 156/75 98 01/30/24 09:40 71 01/30/24 09:37 98.2 F 68 18 159/78 98 Intake and Output 01/30/24 01/30/24 01/30/24 06:59 14:59 22:59 Other: Weight 93.44 kg Results CBC & Chem 7: 01/30/24 11:21 01/30/24 11:21 Labs: Abnormal Lab Results - Last 24 Hours (Table) 01/30/24 01/30/24 01/30/24 Range/Units 11:18 11:21 11:21 RBC 3.39 L (3.80-5.40) m/uL Hgb 10.7 L (11.4-16.0) gm/dL Hct 32.6 L (34.0-46.0) % Plt Count 146 L (150-450) k/uL Chloride 108 H (98-107) mmol/L BUN 24 H (7-17) mg/dL Glucose 149 H (74-99) mg/dL POC Glucose (mg/dL) 162 H (70-110) mg/dL Albumin 3.4 L (3.5-5.0) g/dL TSH 0.158 L (0.465-4.680) mIU/L Ur Leukocyte Esterase (Negative) Urine WBC (0-5) /hpf 01/30/24 Range/Units 11:21 RBC (3.80-5.40) m/uL Hgb (11.4-16.0) gm/dL Hct (34.0-46.0) % Plt Count (150-450) k/uL Chloride (98-107) mmol/L BUN (7-17) mg/dL Glucose (74-99) mg/dL POC Glucose (mg/dL) (70-110) mg/dL Albumin (3.5-5.0) g/dL TSH (0.465-4.680) mIU/L Ur Leukocyte Esterase Moderate H (Negative) Urine WBC 7 H (0-5) /hpf
[2024-01-30 20:25] LABS: Glucose,Whole Blood 176 mg/dL (70-110)
[2024-01-30] MEDS: prednisoLONE ACETATE 1% OPHTH DROPS 5 ML BTL RIGHT EYE SCH (21:38)
[2024-01-30] MEDS: BRIMONIDINE TARTRATE 0.2% DROPS 5 ML BTL RIGHT EYE SCH (21:38)
[2024-01-30] MEDS ORDERED: DEXTROSE 50% SYRINGE 50 ML IVP PRN ×2 (21:49)
[2024-01-30] MEDS: ATORVASTATIN 20 MG TAB PO SCH (22:13)
[2024-01-31] MEDS: LEVOTHYROXINE 100 MCG TAB PO SCH (06:21)
[2024-01-31 07:32] LABS: Glucose,Whole Blood 143 mg/dL (70-110)
[2024-01-31] MEDS: FUROSEMIDE 20 MG TAB PO SCH (08:23)
[2024-01-31] MEDS: ASPIRIN 81 MG PO SCH (08:23)
[2024-01-31] MEDS: lisinopriL 10 MG TAB PO SCH (08:23)
[2024-01-31] MEDS: ENOXAPARIN 40 MG/0.4 ML SYRINGE SQ SCH (08:23)
[2024-01-31] MEDS: INSULIN ASPART (NovoLOG) 100 UNIT/ML VIAL SQ SCH (08:25)
[2024-01-31 09:29] LABS: Blood Urea Nitrogen 19.6 mg/dL (9.0-27.0); Carbon Dioxide 23.3 mmol/L (21.6-31.8); Chloride 107 mmol/L (96-109); Glucose 139 mg/dL (70-110); Potassium 4.4 mmol/L (3.5-5.5); Sodium 140 mmol/L (135-145)
[2024-01-31 09:30] LABS: ALT 9 U/L (8-44); AST 17 U/L (13-35); Albumin 3.5 g/dL (3.8-4.9); Albumin/Globulin Ratio 1.25 Ratio (1.60-3.17); Alkaline Phosphatase 56 U/L (41-126); Calcium 9.2 mg/dL (8.7-10.3); Globulin 2.8 g/dL (1.6-3.3); Total Bilirubin 0.3 mg/dL (0.3-1.2); Total Protein 6.3 g/dL (6.2-8.2)
[2024-01-31 09:31] LABS: Basophils # (A) 0.03 X 10*3/uL (0.00-0.10); Basophils % (A) 0.5 %; Eosinophils # (A) 0.21 X 10*3/uL (0.04-0.35); Eosinophils % (A) 3.5 %; HCT 31.8 % (37.2-46.3); HGB 10.4 g/dL (12.0-15.0); Lymphocytes # (A) 2.44 X 10*3/uL (0.90-5.00); Lymphocytes % (A) 40.7 %; MCH 31.5 pg (27.0-32.0); MCHC 32.7 g/dL (32.0-37.0); MCV 96.4 FL (80.0-97.0); Mean Platelet Volume 11.3 FL (9.5-12.2); Monocytes # (A) 0.43 X 10*3/uL (0.20-1.00); Monocytes % (A) 7.2 %; NRBC Per 100 WBC 0 X 10*3/uL (0.00-0.01); Neutrophils # (A) 2.86 X 10*3/uL (1.80-7.70); Neutrophils % (A) 47.8 %; Platelet Count 147 X 10*3/uL (140-440); RDW 13.6 % (11.5-14.5); WBC 5.99 X 10*3/uL (4.50-10.00)
[2024-01-31 12:32] LABS: Glucose,Whole Blood 273 mg/dL (70-110)
--- NOTE | 2024-01-31 12:49 | P.PN ---
Subjective Progress Note Date: 01/31/24 88 year old F with PMH of HTN, HLD, Hypothyroidism, DM presents to the ED. She underwent eye surgery 2 weeks ago at [place]. Previously able to ambulate with a walker, now finds it difficult to bear weight. She denies any back pain, bladder or bowel incontinence or saddle anesthesia. She reports no other complaints. In the ED she underwent extensive evaluation. BP 125/78, HR 76, RR 18, T 98.2F, 98% on RA. CBC, CMP, Coag panel significant for RBC 3.39, Hg 10.7, Hct 32.6, Plt 146, Cl 108, BUN 24, glu 149. Trop < 0.012 x 1. TSH 0.158, FT4 1.51. Lactic acid 1.3. UA mod LE with 7 WBCs. EKG sinus rhythm with first degree AV block. CXR negative. CT brain chronic small vessel disease, mucosal sinus disease. Patient is admitted for lower extremity weakness. 01/30 Patient was seen and examined. No acute events overnight. She reports continued lower extremity weakness that suddenly started after her eye surgery 2 weeks ago. CBC and BMP significant RBC 3.3, Hg 10.4, Hct 31.8, BUN/Cr 24.5, glu 139, alb 3.5. General: non toxic, no distress, appears at stated age Derm: warm, dry Head: atraumatic, normocephalic, symmetric Eyes: EOMI, no lid lag, anicteric sclera Mouth: no lip lesion, mucus membranes moist Cardiovascular: S1S2 reg, no murmur Lungs: Clear to auscultation bilaterally, no rhonchi, no rales , no accessory muscle use Ext: no gross muscle atrophy, no edema, no contractures Neuro: no focal neuro deficits Psych: Alert, oriented, appropriate affect Based on my assessment of this patient, this patient meets a high complexity level of care. Debility and lower extremity weakness Normocytic anemia Thrombocytopenia Prerenal azotemia Subclinical hyperthyroidism Hypertension Dyslipidemia Diabetes mellitus Obtain CT L spine to rule out spinal cord compression. Continue NS at 75 cc/hr. Fall precautions. PT and OT consult. Restart home medications. CODE STATUS: FULL CODE. DVT Prophylaxis: Lovenox SQ. GI Prophylaxis: Designated medical POA if patient is not able to make medical decisions for themselves: I have reviewed the following commercial solar sales consultant notes: I have reviewed the results of the following tests: CBC, BMP. I have ordered the following tests: CT L spine. I have discussed the care of this patient with the following independent historian: GODFREY. I have independently interpreted the following test below: I have discussed the management of this patient with the following physician: Objective - Vital Signs Vital signs: Vital Signs Temp 97.7 F 01/31/24 07:41 Pulse 58 L 01/31/24 07:41 Resp 17 01/31/24 07:41 BP 153/78 01/31/24 07:41 Pulse Ox 99 01/31/24 07:41 FiO2 Intake & Output 01/30/24 01/31/24 01/31/24 18:59 06:59 18:59 Intake Total 1215 240 Balance 1215 240 Weight 93.44 kg 93.44 kg Intake: Intake, IV Titration 675 Amount Sodium Chloride 0.9% 1, 675 000 ml @ 75 mls/hr IV . [id number] [facility] Rx#:[id number] Oral 540 240 Other: Voiding Method Bedpan - Labs CBC & Chem 7: 01/31/24 04:11 01/31/24 04:11 Labs: Abnormal Lab Results - Last 24 Hours (Table) 01/30/24 01/31/24 01/31/24 Range/Units 20:24 04:11 04:11 RBC 3.30 L (4.10-5.20) X 10*6/uL Hgb 10.4 L (12.0-15.0) g/dL Hct 31.8 L (37.2-46.3) % BUN/Creatinine Ratio 24.50 H (12.00-20.00) Ratio Glucose 139 H (70-110) mg/dL POC Glucose (mg/dL) 176 H (70-110) mg/dL Albumin 3.5 L (3.8-4.9) g/dL Albumin/Globulin Ratio 1.25 L (1.60-3.17) Ratio 01/31/24 01/31/24 Range/Units 07:14 12:29 RBC (4.10-5.20) X 10*6/uL Hgb (12.0-15.0) g/dL Hct (37.2-46.3) % BUN/Creatinine Ratio (12.00-20.00) Ratio Glucose (70-110) mg/dL POC Glucose (mg/dL) 143 H 273 H (70-110) mg/dL Albumin (3.8-4.9) g/dL Albumin/Globulin Ratio (1.60-3.17) Ratio
--- NOTE | 2024-01-31 13:59 | CT ---
EXAMINATION TYPE: CT lumbar spine wo con CT DLP: 1567.9 mGycm, Automated exposure control for dose reduction was used. DATE OF EXAM: 01/31/2024 1:52 PM COMPARISON: None. CLINICAL INDICATION: Female, 88 years old with history of LE weakness; PHH, LE weakness TECHNIQUE: Multiple axial images were obtained from the midportion of T11 through the sacroiliac abdulkadir nts. Soft tissue and bone windows in coronal and sagittal planes were obtained and reviewed. Contrast used: mL of , (None, if empty). Oral contrast used: (None, if empty). FINDINGS: Alignment: There are 5 lumbar type vertebral bodies within normal alignment. Bone: Degeneration changes with ventricular system, osteophytes, facet joint arthropathy and disc spa ce narrowing. Discs: T12-L1: No spinal canal or neural foraminal stenosis is identified. L1-L2: No spinal canal or neural foraminal stenosis is identified. L2-L3: No spinal canal or neural foraminal stenosis is identified. L3-L4: Facet joint arthropathy and disc bulging result in mild spinal canal stenosis and mild bilater al neural foraminal stenosis. L4-L5: Facet joint arthropathy and disc bulging result in moderate to severe spinal canal stenosis an d moderate bilateral neural foraminal stenosis. L5-S1: Facet joint arthropathy and disc bulging result in mild spinal canal stenosis and mild bilater al neural foraminal stenosis. Other: Nonobstructing leftr 5 mm calculus. Atherosclerosis of the arterial vasculature. Scattered col onic diverticula. IMPRESSION: 1. No evidence for spinal fracture. 2. L4-L5 moderate to severe spinal canal stenosis. 3. Moderate degeneration changes throughout the spine multilevel neural foraminal stenosis worse at L 4-L5 with moderate bilateral stenosis. [facility], , 01/31/2024 1:57 PM
[2024-01-31] MEDS: PIOGLITAZONE 15 MG TAB PO SCH (14:07)
[2024-01-31] MEDS: lisinopriL 10 MG TAB PO STA (14:07)
[2024-01-31 17:27] LABS: Glucose,Whole Blood 129 mg/dL (70-110)
[2024-01-31 20:14] LABS: Glucose,Whole Blood 163 mg/dL (70-110)
[2024-01-31] MEDS: metFORMIN 500 MG TAB PO SCH (21:40)
[2024-02-01] MEDS: polyethylene glycoL 3350 17 GM POWD.PACK PO STA (06:33)
[2024-02-01 07:40] LABS: Glucose,Whole Blood 170 mg/dL (70-110)
[2024-02-01] MEDS: lisinopriL 20 MG TAB PO SCH (08:12)
[2024-02-01] MEDS: DEXAMETHASONE SOD PHOSPHATE 10 MG/ML 1 ML VIAL IVP STA (09:35)
--- NOTE | 2024-02-01 12:15 | P.CNOR ---
History of Present Illness - [facility] Consult date: 02/01/24 Requesting physician: Nicol Lin Consult reason: low back pain, other (Bilateral lower extremity weakness) History of present illness: History of Presenting Illness Patient is a pleasant 88-year-old female who presented to the ER due to increased weakness of her bilateral lower extremities. Patient does report increased weakness of her lower extremities that exacerbated after an ophthalmic surgery of her right eye performed approximately 2 weeks ago. Patient does report that she fell approximately 1 month ago and has been utilizing a tripod walker prior her exacerbation of weakness. Patient denies any back pain at this time. She denies any bowel or bladder incontinence or retention or saddle anesthesia. Patient does have a past medical history of hypertension, hyperlipidemia, hypothyroidism and diabetes. Patient seen and examined this morning. Patient is resting comfortably in bed. Patient continues to deny any pain or discomfort of her spine in its entirety. She does report bilateral lower extremity weakness with inability to bear her own weight. Patient is able to perform bed exercises without much difficulty. Patient does demonstrate mild to moderate difficulty with hip flexion and extension exercises. Discussed with patient her CT results of the lumbar spine. Informed patient that we will obtain a MRI of the lumbar spine for further evaluation. Patient verbalizes understanding. Discussed bed exercises to incre ase strength of her bilateral quad muscles. Continue to encourage patient with bed exercises and to increase her activity. Patient may be up to chair with assist of staff. PT/OT has been ordered. Review of Systems Pertinent positives and negatives as discussed in HPI, a complete review of systems was performed and all other systems are negative. Physical Examination General: The patient is awake and alert, in no acute distress Skin: Skin is warm and dry with no obvious rashes or lesions. Eye: Pupils are equal, round and reactive to light, extra-ocular movements are intact; there is normal conjunctiva bilaterally. Neck: The neck is supple, there is no tenderness and ROM intact. Cardiovascular: There is a regular rate and rhythm. No murmur, rub or gallop is appreciated. Respiratory: Respirations are non-labored, breath sounds are equal. Gastrointestinal: Soft, slightly distended, tender abdomen to palpation Back: There is no tenderness to palpation in the midline, paralumbar, parathoracic or buttocks region. There is no obvious deformity. Musculoskeletal: Right: Shoulder abduction 5/5, elbow flexors 5/5, wrist dorsiflexors 5/5. finger abductor 5/5, income tax advisor 5/5, hip flexor 4/5, knee flexor 4/5, ankle dorsiflexor 5/5, ankle plantarflexion 5/5 and extensor hallucis 5/5. Left: Shoulder abduction 5/5, elbow flexors 5/5, wrist dorsiflexors 5/5. finger abductor 5/5, income tax advisor 5/5, hip flexor 4/5, knee flexor 4/5, ankle dorsiflexor 5/5, ankle plantarflexion 5/5 and extensor hallucis 5/5. Neurological: CN 2-12 intact. There are no obvious motor or sensory deficits. Movement and coordination equal and intact. Sensory exam to light touch intact C5-T1 and intact from L2-S1. Reflexes 2/4 in bilateral upper and lower extremities. Negative Hoffmans, babinski, and clonus signs. Psychiatric: Cooperative, appropriate mood & affect, normal judgment. Assessment and Plan CT of the lumbar spine demonstrates L4-L5 moderate to severe spinal canal stenosis with moderate degenerative changes throughout the spine with multilevel neuroforaminal stenosis worse at L4-L5 with moderate bilateral stenosis. There is no evidence for spinal fractures. At this time we do not recommend any emergent/urgent orthopedic surgical intervention. MRI of the lumbar spine has been ordered for further evaluation. Discussed with patient possible surgical and nonsurgical intervention. Patient would like to stay with any conservative treatments at this time. Discussed with patient to work with PT/OT daily and instructed on bed exercises to strengthen her quad muscles. We will continue to follow patient during her stay. 2. Appreciate medical management 3. Ordered MRI of the lumbar spine without contrast, pending results 4. Ordered Decadron IV 10 mg x 1 dose 4. Pain management - Recommend analgesics, continue with Tylenol 5. PT/OT - weightbearing as tolerated with a walker as needed. 6. Appreciate consult I reviewed and discussed this case with my attending Dr. Hernandez, whom has reviewed this chart and films and is in agreement with assessment and plan of care as outlined above. I have personally seen and examined the patient, performed the documentation and the assessment and plan as written. Number of minutes spent on the visit: 30m. Past Medical History Past Medical History: Cancer, Diabetes Mellitus, Hyperlipidemia, Hypertension, Osteoarthritis (OA), Sleep Apnea/CPAP/BIPAP, Thyroid Disorder Additional Past Medical History / Comment(s): uses CPAP, SOB w/exertion, hx. heart murmur, hx. breast cancer insitu 2004, frequent loose stools, blind in left eye, pt does not use CPAP post weight loss, skin cancer History of Any Multi-Drug Resistant Organisms: None Reported Past Surgical History: Appendectomy, Breast Surgery, Hysterectomy Additional Past Surgical History / Comment(s): symone. mastectomy, eye surgery 01/15/24 - blind in left eye Past Anesthesia/Blood Transfusion Reactions: No Reported Reaction Past Psychological History: No Psychological Hx Reported Smoking Status: Former smoker Past Alcohol Use History: None Reported Additional Past Alcohol Use History / Comment(s): quit smoking 1964, smoked 1ppweek 8-9 yrs. Past Drug Use History: None Reported Medications and Allergies Home Medications Medication Instructions Recorded Confirmed Type Ascorbic Acid [Vitamin C] 500 mg PO DAILY 02/02/19 01/30/24 History Furosemide [Lasix] 20 mg PO Q2D 02/02/19 01/30/24 History Levothyroxine Sodium [Synthroid] 100 mcg PO DAILY 02/02/19 01/30/24 History Pioglitazone [Actos] 15 mg PO QAM 02/02/19 01/30/24 History Simvastatin [Zocor] 40 mg PO HS 02/02/19 01/30/24 History lisinopriL [Zestril] 10 mg PO QAM 02/02/19 01/30/24 History Aspirin 81 mg PO DAILY 01/30/24 01/30/24 History Biotin [Ciyb-Icif-Khjas] 10,000 mcg PO DAILY 01/30/24 01/30/24 History Brimonidine Tartrate [Alphagan P 1 drop RIGHT EYE BID 01/30/24 01/30/24 History 0.2% Ophth Soln] Cider Vinegar [Apple Cider Vinegar] 300 mg PO DAILY 01/30/24 01/30/24 History Ergocalciferol [Vitamin D2 (1250 1,250 mcg PO Q14D 01/30/24 01/30/24 History Mcg = [id number] Iu)] metFORMIN HCL [Glucophage] 500 mg PO HS 01/30/24 01/30/24 History prednisoLONE ACETATE 1% OPHTH 1 drop RIGHT EYE TID 01/30/24 01/30/24 History [Pred Forte 1%] Allergies Allergy/AdvReac Type Severity Reaction Status Date / Time Latex, Natural Rubber Allergy red skin Verified 01/30/24 15:12 Results - Labs Labs: Abnormal Lab Results - Last 24 Hours (Table) 01/31/24 01/31/24 01/31/24 Range/Units 04:11 04:11 12:29 RBC 3.30 L (4.10-5.20) X 10*6/uL Hgb 10.4 L (12.0-15.0) g/dL Hct 31.8 L (37.2-46.3) % BUN/Creatinine Ratio 24.50 H (12.00-20.00) Ratio Glucose 139 H (70-110) mg/dL POC Glucose (mg/dL) 273 H (70-110) mg/dL Albumin 3.5 L (3.8-4.9) g/dL Albumin/Globulin Ratio 1.25 L (1.60-3.17) Ratio 01/31/24 01/31/24 02/01/24 Range/Units 17:13 20:12 07:38 RBC (4.10-5.20) X 10*6/uL Hgb (12.0-15.0) g/dL Hct (37.2-46.3) % BUN/Creatinine Ratio (12.00-20.00) Ratio Glucose (70-110) mg/dL POC Glucose (mg/dL) 129 H 163 H 170 H (70-110) mg/dL Albumin (3.8-4.9) g/dL Albumin/Globulin Ratio (1.60-3.17) Ratio H & H 01/30/24 01/31/24 Range/Units 11:21 04:11 Hgb 10.7 L 10.4 L (11.4-16.0) gm/dL Hct 32.6 L 31.8 L (34.0-46.0) % Coagulation 01/30/24 Range/Units 11:21 INR 1.0 (<1.2) Result Diagrams: 01/31/24 04:11 01/31/24 04:11
[2024-02-01 12:28] LABS: Glucose,Whole Blood 178 mg/dL (70-110)
--- NOTE | 2024-02-01 12:57 | P.PN ---
Subjective Progress Note Date: 02/01/24 88 year old F with PMH of HTN, HLD, Hypothyroidism, DM presents to the ED. She underwent eye surgery 2 weeks ago at [place]. Previously able to ambulate with a walker, now finds it difficult to bear weight. She denies any back pain, bladder or bowel incontinence or saddle anesthesia. She reports no other complaints. In the ED she underwent extensive evaluation. BP 125/78, HR 76, RR 18, T 98.2F, 98% on RA. CBC, CMP, Coag panel significant for RBC 3.39, Hg 10.7, Hct 32.6, Plt 146, Cl 108, BUN 24, glu 149. Trop < 0.012 x 1. TSH 0.158, FT4 1.51. Lactic acid 1.3. UA mod LE with 7 WBCs. EKG sinus rhythm with first degree AV block. CXR negative. CT brain chronic small vessel disease, mucosal sinus disease. Patient is admitted for lower extremity weakness. CT L spine showed mod-severe spinal canal stenosis. Dr. Hernandez consulted. Plans for MRI. 01/31 Patient was seen and examined. No acute events overnight. Discussed with Sis WILSON, plans for MRI L spine, Dr. Hernandez to evaluate on Friday. General: non toxic, no distress, appears at stated age Derm: warm, dry Head: atraumatic, normocephalic, symmetric Eyes: EOMI, no lid lag, anicteric sclera Mouth: no lip lesion, mucus membranes moist Cardiovascular: S1S2 reg, no murmur Lungs: Clear to auscultation bilaterally, no rhonchi, no rales , no accessory muscle use Ext: no gross muscle atrophy, no edema, no contractures Neuro: no focal neuro deficits Psych: Alert, oriented, appropriate affect Based on my assessment of this patient, this patient meets a high complexity level of care. Moderate-Severe spinal canal stenosis Normocytic anemia Thrombocytopenia Prerenal azotemia Subclinical hyperthyroidism Hypertension Dyslipidemia Diabetes mellitus MRI L spine ordered. Ortho spine consulted. DC IVF and encourage hydration by mouth. Fall precautions. PT and OT consult. Restart home medications. CODE STATUS: FULL CODE. DVT Prophylaxis: Lovenox SQ. GI Prophylaxis: Designated medical POA if patient is not able to make medical decisions for themselves: I have reviewed the following political consultant notes: Ortho note. I have reviewed the results of the following tests: CT L spine. I have ordered the following tests: I have discussed the care of this patient with the following independent historian: GODFREY. I have independently interpreted the following test below: I have discussed the management of this patient with the following physician: Sis WILSON Objective - Vital Signs Vital signs: Vital Signs Temp 97.3 F L 02/01/24 07:00 Pulse 66 02/01/24 07:00 Resp 18 02/01/24 07:00 BP 149/72 02/01/24 07:00 Pulse Ox 97 02/01/24 07:00 FiO2 Intake & Output 01/31/24 02/01/24 02/01/24 18:59 06:59 18:59 Intake Total 820 Balance 820 Intake: Oral 820 Other: # Voids 3 - Labs CBC & Chem 7: 01/31/24 04:11 01/31/24 04:11 Labs: Abnormal Lab Results - Last 24 Hours (Table) 01/31/24 01/31/24 01/31/24 Range/Units 04:11 04:11 12:29 RBC 3.30 L (4.10-5.20) X 10*6/uL Hgb 10.4 L (12.0-15.0) g/dL Hct 31.8 L (37.2-46.3) % BUN/Creatinine Ratio 24.50 H (12.00-20.00) Ratio Glucose 139 H (70-110) mg/dL POC Glucose (mg/dL) 273 H (70-110) mg/dL Albumin 3.5 L (3.8-4.9) g/dL Albumin/Globulin Ratio 1.25 L (1.60-3.17) Ratio 01/31/24 01/31/24 02/01/24 Range/Units 17:13 20:12 07:38 RBC (4.10-5.20) X 10*6/uL Hgb (12.0-15.0) g/dL Hct (37.2-46.3) % BUN/Creatinine Ratio (12.00-20.00) Ratio Glucose (70-110) mg/dL POC Glucose (mg/dL) 129 H 163 H 170 H (70-110) mg/dL Albumin (3.8-4.9) g/dL Albumin/Globulin Ratio (1.60-3.17) Ratio
[2024-02-01 17:05] LABS: Glucose,Whole Blood 271 mg/dL (70-110)
[2024-02-01 17:12] LABS: Glucose,Whole Blood 262 mg/dL (70-110)
[2024-02-01 20:00] LABS: Glucose,Whole Blood 303 mg/dL (70-110)
[2024-02-02 07:11] LABS: Glucose,Whole Blood 193 mg/dL (70-110)
--- NOTE | 2024-02-02 08:49 | P.PN ---
Subjective Progress Note Date: 02/02/24 Principal diagnosis: Bilateral lower extremity weakness Patient seen and examined this morning. Patient is resting comfortably in bed. She does report that she did sit up in the chair for about 2 hours yesterday and tolerated activity well. Patient does continue to have complaint of bilateral lower extremity weakness into her thigh region. She continues to deny any lower extremity radiculopathy or numbness and tingling. Patient is scheduled for MRI of the lumbar spine today at 315. Informed patient that we will review results and discuss further treatment options. Encourage patient to continue to work with physical therapy today. No acute concerns. Objective - Vital Signs Vital signs: Vital Signs Temp 97.5 F L 02/02/24 07:09 Pulse 69 02/02/24 07:09 Resp 16 02/02/24 07:09 BP 144/74 02/02/24 07:09 Pulse Ox 96 02/02/24 07:09 FiO2 Intake & Output 02/01/24 02/02/24 02/02/24 18:59 06:59 18:59 Intake Total 560 1180 Balance 560 1180 Intake: Oral 560 1180 Other: Voiding Method Bedpan # Voids 3 1 # Bowel Movements 1 - Exam General: The patient is awake and alert, in no acute distress Skin: Skin is warm and dry with no obvious rashes or lesions. Eye: Pupils are equal, round and reactive to light, extra-ocular movements are intact; there is normal conjunctiva bilaterally. Neck: The neck is supple, there is no tenderness and ROM intact. Cardiovascular: There is a regular rate and rhythm. No murmur, rub or gallop is appreciated. Respiratory: Respirations are non-labored, breath sounds are equal. Gastrointestinal: Soft, slightly distended, tender abdomen to palpation Back: There is no tenderness to palpation in the midline, paralumbar, parathoracic or buttocks region. There is no obvious deformity. Musculoskeletal: Right: Shoulder abduction 5/5, elbow flexors 5/5, wrist dorsiflexors 5/5. finger abductor 5/5, seafood and service meat manager 5/5, hip flexor 4/5, knee flexor 4/5, ankle dorsiflexor 5/5, ankle plantarflexion 5/5 and extensor hallucis 5/5. Left: Shoulder abduction 5/5, elbow flexors 5/5, wrist dorsiflexors 5/5. finger abductor 5/5, seafood and service meat manager 5/5, hip flexor 4/5, knee flexor 4/5, ankle dorsiflexor 5/5, ankle plantarflexion 5/5 and extensor halluc is 5/5. Neurological: CN 2-12 intact. There are no obvious motor or sensory deficits. Movement and coordination equal and intact. Sensory exam to light touch intact C5-T1 and intact from L2-S1. Reflexes 2/4 in bilateral upper and lower extremities. Negative Hoffmans, babinski, and clonus signs. Psychiatric: Cooperative, appropriate mood & affect, normal judgment. - Labs CBC & Chem 7: 01/31/24 04:11 01/31/24 04:11 Labs: Abnormal Lab Results - Last 24 Hours (Table) 02/01/24 02/01/24 02/01/24 Range/Units 12:23 17:00 17:09 POC Glucose (mg/dL) 178 H 271 H 262 H (70-110) mg/dL 02/01/24 02/02/24 Range/Units 19:59 07:10 POC Glucose (mg/dL) 303 H 193 H (70-110) mg/dL Assessment and Plan Assessment: Lumbar spondylosis L4-L5 moderate to severe spinal stenosis Multilevel facet arthropathy, most severe at L4-L5 with bilateral foraminal stenosis Bilateral lower extremity weakness Plan: 2. Appreciate medical management 3. Ordered MRI of the lumbar spine without contrast, pending results 4. Pain management - Recommend analgesics, continue with Tylenol 5. PT/OT - weightbearing as tolerated with a walker as needed. 6. Appreciate consult I reviewed and discussed this case with my attending Dr. Hernandez, whom has reviewed this chart and films and is in agreement with assessment and plan of care as outlined above. I have personally seen and examined the patient, performed the documentation and the assessment and plan as written. Number of minutes spent on the visit: 30m.
[2024-02-02 12:27] LABS: Glucose,Whole Blood 201 mg/dL (70-110)
--- NOTE | 2024-02-02 13:27 | P.PN ---
Subjective Progress Note Date: 02/02/24 88 year old F with PMH of HTN, HLD, Hypothyroidism, DM presents to the ED. She underwent eye surgery 2 weeks ago at [place]. Previously able to ambulate with a walker, now finds it difficult to bear weight. She denies any back pain, bladder or bowel incontinence or saddle anesthesia. She reports no other complaints. In the ED she underwent extensive evaluation. BP 125/78, HR 76, RR 18, T 98.2F, 98% on RA. CBC, CMP, Coag panel significant for RBC 3.39, Hg 10.7, Hct 32.6, Plt 146, Cl 108, BUN 24, glu 149. Trop < 0.012 x 1. TSH 0.158, FT4 1.51. Lactic acid 1.3. UA mod LE with 7 WBCs. EKG sinus rhythm with first degree AV block. CXR negative. CT brain chronic small vessel disease, mucosal sinus disease. Patient is admitted for lower extremity weakness. CT L spine showed mod-severe spinal canal stenosis. Dr. Hernandez consulted. Plans for MRI. 02/01 Patient was seen and examined. No acute events overnight. MRI L spine pending. General: non toxic, no distress, appears at stated age Derm: warm, dry Head: atraumatic, normocephalic, symmetric Eyes: EOMI, no lid lag, anicteric sclera Mouth: no lip lesion, mucus membranes moist Cardiovascular: good distal perfusion in all 4 extremities Lungs: breathing comfortably, no accessory muscle use Ext: no gross muscle atrophy, no edema, no contractures Neuro: no focal neuro deficits Psych: Alert, oriented, appropriate affect Based on my assessment of this patient, this patient meets a high complexity level of care. Moderate-Severe spinal canal stenosis Normocytic anemia Thrombocytopenia Prerenal azotemia Subclinical hyperthyroidism Hypertension Dyslipidemia Diabetes mellitus MRI L spine ordered. Ortho spine consulted. DC IVF and encourage hydration by mouth. Fall precautions. PT and OT consult. Restart home medications. CODE STATUS: FULL CODE. DVT Prophylaxis: Lovenox SQ. GI Prophylaxis: Designated medical POA if patient is not able to make medical decisions for themselves: I have reviewed the following risk assessment consultant notes: Ortho note. I have reviewed the results of the following tests: I have ordered the following tests: I have discussed the care of this patient with the following independent historian: I have independently interpreted the following test below: I have discussed the management of this patient with the following physician: Objective - Vital Signs Vital signs: Vital Signs Temp 97.7 F 02/02/24 12:21 Pulse 57 L 02/02/24 12:21 Resp 16 02/02/24 12:21 BP 149/77 02/02/24 12:21 Pulse Ox 99 02/02/24 12:21 FiO2 Intake & Output 02/01/24 02/02/24 02/02/24 18:59 06:59 18:59 Intake Total 560 1180 Balance 560 1180 Intake: Oral 560 1180 Other: Voiding Method Bedpan Bedpan Diaper # Voids 3 4 # Bowel Movements 1 - Labs CBC & Chem 7: 01/31/24 04:11 01/31/24 04:11 Labs: Abnormal Lab Results - Last 24 Hours (Table) 02/01/24 02/01/24 02/01/24 Range/Units 17:00 17:09 19:59 POC Glucose (mg/dL) 271 H 262 H 303 H (70-110) mg/dL 02/02/24 02/02/24 Range/Units 07:10 12:24 POC Glucose (mg/dL) 193 H 201 H (70-110) mg/dL
--- NOTE | 2024-02-02 16:40 | MR ---
EXAMINATION TYPE: MR lumbar spine wo con DATE OF EXAM: 02/02/2024 4:34 PM COMPARISON: CT 04/01/2024.. CLINICAL INDICATION: Female, 88 years old with history of Inability to ambulate; PHH, Inability to am bulate TECHNIQUE: Multi planar, multi sequence imaging was performed utilizing: T1-weighted, T2-weighted, a nd turbo inversion recovery imaging of the lumbar spine. IV Contrast: cc . (None if empty) FINDINGS: Alignment: The lumbar vertebral bodies have preserved heights and alignment. Cord: The conus medullaris and the distal spinal cord appear unremarkable with regards to their signa l intensity and morphology. Bones/Discs: Mild to moderate degeneration changes throughout the spine with osteophyte formation and facet joint arthropathy. Intervertebral disc signal is maintained. Reactive adjoining endplate edema at XX. L4-L5 and around the adjoining facet joints of L4-L5. T12-L1: No evidence of significant spinal canal stenosis or neural foraminal stenosis. L1-L2: No evidence of significant spinal canal stenosis or neural foraminal stenosis. L2-L3: No evidence of significant spinal canal stenosis or neural foraminal stenosis. L3-L4: Disc bulge and facet joint arthropathy result in mild spinal canal and mild to moderate bilate ral neural foraminal stenosis. L4-L5: Disc bulge and facet joint arthropathy result in moderate spinal canal and mild to moderate bi lateral neural foraminal stenosis. L5-S1: The disc has a rounded posterior morphology without significant spinal canal stenosis. Facet j oint arthropathy with mild to moderate bilateral neural foraminal stenosis. No significant spinal canal or neural foraminal stenosis in the remainder of the visualized levels. Other findings: Perineural cysts seen at the level of S2-S3 on the left measuring up to 12 mm in the right at S1-S2 measuring up to 12 mm. Left renal cortical cyst partially visualized which is high T2 signal. IMPRESSION: 1. Moderate spinal canal stenosis at L4-L5. No definitive evidence of disc herniation. 2. Multilevel disc degeneration with associated osteoarthritic changes. Neural foraminal stenosis wo rse at L4-L5 and L5-S1 with mild to moderate neural foraminal stenosis. [facility], Workstation: [id number], 02/02/2024 4:38 PM
[2024-02-02 17:02] LABS: Glucose,Whole Blood 218 mg/dL (70-110)
[2024-02-02 20:26] LABS: Glucose,Whole Blood 301 mg/dL (70-110)
[2024-02-02] MEDS ORDERED: ZINC OXIDE PASTE (Z-GUARD) 1 APPLIC TOPICAL PRN (22:28)
[2024-02-03 07:41] LABS: Glucose,Whole Blood 132 mg/dL (70-110)
--- NOTE | 2024-02-03 08:06 | P.PN ---
Subjective Progress Note Date: 02/03/24 Principal diagnosis: Bilateral lower extremity weakness Patient seen and examined this morning. Patient is resting comfortably in bed. Patient does continue to have complaint of bilateral lower extremity weakness into her thigh region. She continues to deny any lower extremity radiculopathy or numbness and tingling. MRI has been reviewed and discussed with patient. Discussed surgical and nonsurgical treatment options. She would like to continue with conservative treatment at this time. Consult to pain management for possible injections has been placed. Patient request that check writer call and speak with her daughter, will attempt this morning. Encourage patient to continue to work with physical therapy today. No acute concerns. Objective - Vital Signs Vital signs: Vital Signs Temp 97.9 F 02/03/24 01:46 Pulse 61 02/03/24 01:46 Resp 16 02/03/24 01:46 BP 150/79 02/03/24 01:46 Pulse Ox 96 02/03/24 01:46 FiO2 Intake & Output 02/02/24 02/03/24 02/03/24 18:59 06:59 18:59 Intake Total 120 Output Total 700 Balance 120 -700 Intake: Oral 120 Output: Urine 700 Other: Voiding Method Bedpan Diaper Diaper # Voids 1 # Bowel Movements 2 - Exam General: The patient is awake and alert, in no acute distress Skin: Skin is warm and dry with no obvious rashes or lesions. Eye: Pupils are equal, round and reactive to light, extra-ocular movements are intact; there is normal conjunctiva bilaterally. Neck: The neck is supple, there is no tenderness and ROM intact. Cardiovascular: There is a regular rate and rhythm. No murmur, rub or gallop is appreciated. Respiratory: Respirations are non-labored, breath sounds are equal. Gastrointestinal: Soft, slightly distended, tender abdomen to palpation Back: There is no tenderness to palpation in the midline, paralumbar, parathoracic or buttocks region. There is no obvious deformity. Musculoskeletal: Right: Shoulder abduction 5/5, elbow flexors 5/5, wrist dorsiflexors 5/5. finger abductor 5/5, line mechanic 5/5, hip flexor 4/5, knee flexor 4/5, ankle dorsiflexor 5/5, ankle plantarflexion 5/5 and extensor halluci s 5/5. Left: Shoulder abduction 5/5, elbow flexors 5/5, wrist dorsiflexors 5/5. finger abductor 5/5, line mechanic 5/5, hip flexor 4/5, knee flexor 4/5, ankle dorsiflexor 5/5, ankle plantarflexion 5/5 and extensor hallucis 5/5. Neurological: CN 2-12 intact. There are no obvious motor or sensory deficits. Movement and coordination equal and intact. Sensory exam to light touch intact C5-T1 and intact from L2-S1. Reflexes 2/4 in bilateral upper and lower extremities. Negative Hoffmans, babinski, and clonus signs. Psychiatric: Cooperative, appropriate mood & affect, normal judgment. - Labs CBC & Chem 7: 01/31/24 04:11 01/31/24 04:11 Labs: Abnormal Lab Results - Last 24 Hours (Table) 02/02/24 02/02/24 02/02/24 Range/Units 12:24 16:58 20:20 POC Glucose (mg/dL) 201 H 218 H 301 H (70-110) mg/dL 02/03/24 Range/Units 07:39 POC Glucose (mg/dL) 132 H (70-110) mg/dL Assessment and Plan Assessment: Lumbar spondylosis L4-L5 moderate to severe spinal stenosis Multilevel facet arthropathy, most severe at L4-L5 with bilateral foraminal st enosis Bilateral lower extremity weakness Plan: MRI Of the lumbar spine demonstrates moderate spinal canal stenosis at L4-L5. No definitive evidence of disc herniation. There is also multilevel disc degeneration with associated osteoarthritic changes. Neuroforaminal stenosis worse at L4-L5 and L5-S1 with mild to moderate neuroforaminal stenosis. Discussed surgical and nonsurgical treatment options with patient. Patient would like to stay conservative at this time. Consult placed for pain management for possible injections at these levels. We will continue to follow patient during stay. 2. Appreciate medical management 3. Consult to pain management for possible injections at L4-S1. 4. Pain management - Recommend analgesics, continue with Tylenol 5. PT/OT - weightbearing as tolerated with a walker as needed. 6. Appreciate consult I reviewed and discussed this case with my attending Dr. Hernandez, whom has reviewed this chart and films and is in agreement with assessment and plan of care as outlined above. I have personally seen and examined the patient, performed the documentation and the assessment and plan as written. Number of minutes spent on the visit: 30m.
[2024-02-03] MEDS: amLODIPine 10 MG TAB PO SCH (10:14)
[2024-02-03 12:09] LABS: Glucose,Whole Blood 146 mg/dL (70-110)
--- NOTE | 2024-02-03 13:25 | P.PN ---
Subjective Progress Note Date: 02/03/24 88 year old F with PMH of HTN, HLD, Hypothyroidism, DM presents to the ED. She underwent eye surgery 2 weeks ago at [place]. Previously able to ambulate with a walker, now finds it difficult to bear weight. She denies any back pain, bladder or bowel incontinence or saddle anesthesia. She reports no other complaints. In the ED she underwent extensive evaluation. BP 125/78, HR 76, RR 18, T 98.2F, 98% on RA. CBC, CMP, Coag panel significant for RBC 3.39, Hg 10.7, Hct 32.6, Plt 146, Cl 108, BUN 24, glu 149. Trop < 0.012 x 1. TSH 0.158, FT4 1.51. Lactic acid 1.3. UA mod LE with 7 WBCs. EKG sinus rhythm with first degree AV block. CXR negative. CT brain chronic small vessel disease, mucosal sinus disease. Patient is admitted for lower extremity weakness. CT L spine showed mod-severe spinal canal stenosis. Dr. Hernandez consulted. MRI L spine showed moderate spinal canal stenosis. 02/02 Patient was seen and examined. No acute events overnight. Discussed with STEVE Alegre consult pain management for epidural steroid injection. Will discontinue ASA in preparation for epidural injection on (hold Lovenox night prior to injection). Plans for SNF after that. General: non toxic, no distress, appears at stated age Derm: warm, dry Head: atraumatic, normocephalic, symmetric Eyes: EOMI, no lid lag, anicteric sclera Mouth: no lip lesion, mucus membranes moist Cardiovascular: good distal perfusion in all 4 extremities Lungs: breathing comfortably, no accessory muscle use Ext: no gross muscle atrophy, no edema, no contractures Neuro: no focal neuro deficits Psych: Alert, oriented, appropriate affect Based on my assessment of this patient, this patient meets a high complexity level of care. Moderate-Severe spinal canal stenosis Normocytic anemia Thrombocytopenia Prerenal azotemia Subclinical hyperthyroidism Hypertension Dyslipidemia Diabetes mellitus MRI L spine reviewed. Ortho spine on board, discussed with Sis WILSNO. Pain management consulted for epidural injection to be done on . Stop ASA and hold Lovenox on Friday. Fall precautions. PT and OT on board. Plans for SNF on . Restart home medications. CODE STATUS: FULL CODE. DVT Prophylaxis: Lovenox SQ. GI Prophylaxis: Designated medical POA if patient is not able to make medical decisions for themselves: I have reviewed the following economics consultant notes: Ortho note. I have reviewed the results of the following tests: MRI L spine. I have ordered the following tests: I have discussed the care of this patient with the following independent historian: GODFREY. I have independently interpreted the following test below: I have discussed the management of this patient with the following physician: Sis WILSON Objective - Vital Signs Vital signs: Vital Signs Temp 97.7 F 02/03/24 08:00 Pulse 97 02/03/24 08:00 Resp 18 02/03/24 08:00 BP 151/83 02/03/24 08:00 Pulse Ox 96 02/03/24 01:46 FiO2 Intake & Output 02/02/24 02/03/24 02/03/24 18:59 06:59 18:59 Intake Total 120 209 Output Total 700 Balance 120 -700 209 Intake: Oral 120 209 Output: Urine 700 Other: Voiding Method Bedpan Diaper Diaper Diaper # Voids 1 # Bowel Movements 2 - Labs CBC & Chem 7: 01/31/24 04:11 01/31/24 04:11 Labs: Abnormal Lab Results - Last 24 Hours (Table) 02/02/24 02/02/24 02/03/24 Range/Units 16:58 20:20 07:39 POC Glucose (mg/dL) 218 H 301 H 132 H (70-110) mg/dL 02/03/24 Range/Units 12:08 POC Glucose (mg/dL) 146 H (70-110) mg/dL
--- NOTE | 2024-02-03 14:04 | P.PAINCN ---
History of Present Illness - History of Present Illness This is a 88-year-old pleasant lady who was admitted to the hospital with weak ness of bilateral lower extremities. Patient relates that since last 1 year gradually her lower extremities getting weaker but the last 3 weeks it has gotten worse. Patient denies any pain in the back. Currently she uses a walker to move around. She denies any numbness or tingling or loss of sensation in lower extremities. She denies any new bowel or bladder incontinence. She relates weakness gets worse after walking some distance. Again, patient denies any pain in the back. Past Medical History Past Medical History: Cancer, Diabetes Mellitus, Hyperlipidemia, Hypertension, Osteoarthritis (OA), Sleep Apnea/CPAP/BIPAP, Thyroid Disorder Additional Past Medical History / Comment(s): uses CPAP, SOB w/exertion, hx. heart murmur, hx. breast cancer insitu 2004, frequent loose stools, blind in left eye, pt does not use CPAP post weight loss, skin cancer History of Any Multi-Drug Resistant Organisms: None Reported Past Surgical History: Appendectomy, Breast Surgery, Hysterectomy Additional Past Surgical History / Comment(s): symone. mastectomy, eye surgery 01/15/24 - blind in left eye Past Anesthesia/Blood Transfusion Reactions: No Reported Reaction Past Psychological History: No Psychological Hx Reported Smoking Status: Former smoker Past Alcohol Use History: None Reported Additional Past Alcohol Use History / Comment(s): quit smoking 1964, smoked 1ppweek 8-9 yrs. Past Drug Use History: None Reported Medications and Allergies Home Medications Medication Instructions Recorded Confirmed Type Ascorbic Acid [Vitamin C] 500 mg PO DAILY 02/02/19 01/30/24 History Furosemide [Lasix] 20 mg PO Q2D 02/02/19 01/30/24 History Levothyroxine Sodium [Synthroid] 100 mcg PO DAILY 02/02/19 01/30/24 History Pioglitazone [Actos] 15 mg PO QAM 02/02/19 01/30/24 History Simvastatin [Zocor] 40 mg PO HS 02/02/19 01/30/24 History lisinopriL [Zestril] 10 mg PO QAM 02/02/19 01/30/24 History Aspirin 81 mg PO DAILY 01/30/24 01/30/24 History Biotin [Ypnq-Fqlv-Kbkru] 10,000 mcg PO DAILY 01/30/24 01/30/24 History Brimonidine Tartrate [Alphagan P 1 drop RIGHT EYE BID 01/30/24 01/30/24 History 0.2% Ophth Soln] Cider Vinegar [Apple Cider Vinegar] 300 mg PO DAILY 01/30/24 01/30/24 History Ergocalciferol [Vitamin D2 (1250 1,250 mcg PO Q14D 01/30/24 01/30/24 History Mcg = 87580 Iu)] metFORMIN HCL [Glucophage] 500 mg PO HS 01/30/24 01/30/24 History prednisoLONE ACETATE 1% OPHTH 1 drop RIGHT EYE TID 01/30/24 01/30/24 History [Pred Forte 1%] Allergies Allergy/AdvReac Type Severity Reaction Status Date / Time Latex, Natural Rubber Allergy red skin Verified 01/30/24 15:12 Physical Exam Vitals: Vital Signs Temp Pulse Pulse Resp BP BP Pulse Ox 02/03/24 13:25 97.4 F L 82 16 141/68 98 02/03/24 08:00 97.7 F 71 97 18 151/83 02/03/24 01:46 97.9 F 61 16 150/79 96 02/02/24 20:00 97.4 F L 72 16 166/91 98 Intake and Output 02/02/24 02/03/24 02/03/24 22:59 06:59 14:59 Intake Total 120 209 Output Total 700 Balance 120 -700 209 Intake: Oral 120 209 Output: Urine 700 Other: Voiding Method Diaper Diaper # Voids 1 1 # Bowel Movements 2 - Neurologic Limited physical exam. Hip knee ankle flexion extension 4/5 bilaterally.. Deep tendon reflexes of knees and ankle 1+ bilaterally. Session to touch intact bilaterally. - Musculoskeletal Lumbar spine flexion hyperextension rotation within normal limit and not painful. No tenderness or spasm of paraspinal muscles. Results Results: CT scan of lumbar spine was reviewed. CBC & Chem 7: 01/31/24 04:11 01/31/24 04:11 Labs: Abnormal Lab Results - Last 24 Hours (Table) 02/02/24 02/02/24 02/03/24 Range/Units 16:58 20:20 07:39 POC Glucose (mg/dL) 218 H 301 H 132 H (70-110) mg/dL 02/03/24 Range/Units 12:08 POC Glucose (mg/dL) 146 H (70-110) mg/dL Assessment and Plan Assessment: 1. Lumbar spinal stenosis. 2. Lumbar radiculopathy. Plan: Suggest lumbar epidural steroid injection. Discussed the procedure and possible complications which may include infection, bleeding, nerve damage with the patient. She understands and all questions were answered. Patient got her Lovenox shot this morning. She needs to be scheduled for epidural steroid injection at least 12 hours after the Lovenox shot. PQRS Measure Charge Sheet - Pain Location None Non-Pharmacological Interventions: Darkened Room, Distraction PQRS Narrative: Smoking Status Former smoker Blood Pressure [Right Arm 141/68 Sitting] Blood Pressure [Left Arm] 151/83 Blood Pressure 125/78 Pain Intensity [None] 0 Pain Intensity 0 Scale Used Numeric (1 - 10) Home Medications: Ambulatory Orders Ascorbic Acid [Vitamin C] 500 mg PO DAILY 02/02/19 Furosemide [Lasix] 20 mg PO Q2D 02/02/19 Levothyroxine Sodium [Synthroid] 100 mcg PO DAILY 02/02/19 Pioglitazone [Actos] 15 mg PO QAM 02/02/19 Simvastatin [Zocor] 40 mg PO HS 02/02/19 lisinopriL [Zestril] 10 mg PO QAM 02/02/19 Aspirin 81 mg PO DAILY 01/30/24 Biotin [Fllu-Cgay-Jcusx] 10,000 mcg PO DAILY 01/30/24 Brimonidine Tartrate [Alphagan P 0.2% Ophth Soln] 1 drop RIGHT EYE BID 01/30/24 Cider Vinegar [Apple Cider Vinegar] 300 mg PO DAILY 01/30/24 Ergocalciferol [Vitamin D2 (1250 Mcg = 61656 Iu)] 1,250 mcg PO Q14D 01/30/24 metFORMIN HCL [Glucophage] 500 mg PO HS 01/30/24 prednisoLONE ACETATE 1% OPHTH [Pred Forte 1%] 1 drop RIGHT EYE TID 01/30/24
[2024-02-03 17:03] LABS: Glucose,Whole Blood 201 mg/dL (70-110)
[2024-02-03 20:17] LABS: Glucose,Whole Blood 186 mg/dL (70-110)
[2024-02-04] MEDS: NYSTATIN 100,000 UNIT/GM POWD 15 GM TOPICAL SCH (01:04)
[2024-02-04 07:08] LABS: Glucose,Whole Blood 139 mg/dL (70-110)
--- NOTE | 2024-02-04 09:24 | P.PN ---
Subjective Progress Note Date: 02/04/24 Principal diagnosis: Bilateral lower extremity weakness Patient seen and examined this morning. Patient is resting comfortably in bed. Patient verbalizes that she would like to stay with conservative treatment and the more that she thought about it she does not want surgical intervention. Patient is scheduled to have an injection , 02/05/2024. No further recommendations from a orthopedic standpoint. Our information will be placed in discharge plan. Our services will be signing off at this time, please feel free to reach out with any further questions or concerns. Objective - Vital Signs Vital signs: Vital Signs Temp 98.1 F 02/04/24 08:06 Pulse 68 02/04/24 08:06 Resp 18 02/04/24 08:06 BP 110/68 02/04/24 08:06 Pulse Ox 93 L 02/04/24 01:39 FiO2 Intake & Output 02/03/24 02/04/24 02/04/24 18:59 06:59 18:59 Intake Total 449 Balance 449 Intake: Oral 449 Other: Voiding Method Diaper Toilet Diaper External Catheter # Voids 1 2 # Bowel Movements 1 - Exam General: The patient is awake and alert, in no acute distress Skin: Skin is warm and dry with no obvious rashes or lesions. Eye: Pupils are equal, round and reactive to light, extra-ocular movements are intact; there is normal conjunctiva bilaterally. Neck: The neck is supple, there is no tenderness and ROM intact. Cardiovascular: There is a regular rate and rhythm. No murmur, rub or gallop is appreciated. Respiratory: Respirations are non-labored, breath sounds are equal. Gastrointestinal: Soft, slightly distended, tender abdomen to palpation Back: There is no tenderness to palpation in the midline, paralumbar, parathoracic or buttocks region. There is no obvious deformity. Musculoskeletal: Right: Shoulder abduction 5/5, elbow flexors 5/5, wrist dorsiflexors 5/5. finger abductor 5/5, criminal records technician 5/5, hip flexor 4/5, knee flexor 4/5, ankle dorsiflexor 5/5, ankle plantarflexion 5/5 and extensor hallucis 5/5. Left: Shoulder abduction 5/5, elbow flexors 5/5, wrist dorsiflexors 5/5. finger abductor 5/5, criminal records technician 5/5, hip flexor 4/5, knee flexor 4/5, ankle dorsiflexor 5/5, ankle plantarflexion 5/5 and extensor hallucis 5/5. Neurological: CN 2-12 intact. There are no obvious motor or sensory deficits. Movement and coordination equal and intact. Sensory exam to light touch intact C5-T1 and intact from L2-S1. Reflexes 2/4 in bilateral upper and lower extremities. Negative Hoffmans, babinski, and clonus signs. Psychiatric: Cooperative, appropriate mood & affect, normal judgment. - Labs CBC & Chem 7: 01/31/24 04:11 01/31/24 04:11 Labs: Abnormal Lab Results - Last 24 Hours (Table) 02/03/24 02/03/24 02/03/24 Range/Units 12:08 17:02 20:13 POC Glucose (mg/dL) 146 H 201 H 186 H (70-110) mg/dL 02/04/24 Range/Units 07:06 POC Glucose (mg/dL) 139 H (70-110) mg/dL Assessment and Plan Assessment: Lumbar spondylosis L4-L5 moderate to severe spinal stenosis Multilevel facet arthropathy, most severe at L4-L5 with bilateral foraminal stenosis Bilateral lower extremity weakness Plan: Patient to continue follow-up care with pain management services at this time. Our services will be signing off, please feel free to reach out with any further questions or concerns. 2. Appreciate medical management 3. Pain management - Recommend analgesics, continue with Tylenol 5. PT/OT - weightbearing as tolerated with a walker as needed. 6. Appreciate consult I reviewed and discussed this case with my attending Dr. Hernandez, whom has reviewed this chart and films and is in agreement with assessment and plan of care as outlined above. I have personally seen and examined the patient, performed the documentation and the assessment and plan as written. Number of minutes spent on the visit: 30m.
[2024-02-04 12:28] LABS: Glucose,Whole Blood 136 mg/dL (70-110)
--- NOTE | 2024-02-04 12:43 | P.PN ---
Subjective Progress Note Date: 02/04/24 Hospital course 88 year old F with PMH of HTN, HLD, Hypothyroidism, DM presents to the ED. She underwent eye surgery 2 weeks ago at [place]. Previously able to ambulate with a walker, now finds it difficult to bear weight. She denies any back pain, bladder or bowel incontinence or saddle anesthesia. She reports no other complaints. In the ED she underwent extensive evaluation. BP 125/78, HR 76, RR 18, T 98.2F, 98% on RA. CBC, CMP, Coag panel significant for RBC 3.39, Hg 10.7, Hct 32.6, Plt 146, Cl 108, BUN 24, glu 149. Trop < 0.012 x 1. TSH 0.158, FT4 1.51. Lactic acid 1.3. UA mod LE with 7 WBCs. EKG sinus rhythm with first degree AV block. CXR negative. CT brain chronic small vessel disease, mucosal sinus disease. Patient is admitted for lower extremity weakness. CT L spine showed mod-severe spinal canal stenosis. Dr. Hernandez consulted. MRI L spine showed moderate spinal canal stenosis. Patient seen this morning. She had no acute complaints. I saw her get up with minimal assistance and walk to the bathroom with 2 wheeled walker. Physical exam General: non toxic, no distress, appears at stated age Derm: warm, dry Head: atraumatic, normocephalic, symmetric Eyes: EOMI, no lid lag, anicteric sclera Mouth: no lip lesion, mucus membranes moist Cardiovascular: good distal perfusion in all 4 extremities Lungs: breathing comfortably, no accessory muscle use Ext: no gross muscle atrophy, no edema, no contractures Neuro: no focal neuro deficits Psych: Alert, oriented, appropriate affect Assessment and plan Moderate-Severe spinal canal stenosis Plan is for steroid injection tomorrow I discontinued Lovenox Hold aspirin PT OT recommending rehab Discussed with case management who said there is a facility that is evaluating her case and will hopefully have placement tomorrow Normocytic anemia No overt signs of bleeding Further workup outpatient Subclinical hyperthyroidism Continue with levothyroxine 100 mcg daily Hypertension Continue with lisinopril 20 mg daily, amlodipine 10 mg p.o. daily, furosemide 20 mg p.o. every other day Dyslipidemia Continue with atorvastatin 20 mg at bedtime Diabetes mellitus Continue metformin 5 mg at bedtime and Actos 15 mg at morning CODE STATUS: FULL CODE. DVT Prophylaxis: Hold subcu Lovenox for procedure Objective - Vital Signs Vital signs: Vital Signs Temp 97.7 F 02/04/24 12:07 Pulse 65 02/04/24 12:07 Resp 18 02/04/24 12:07 BP 104/67 02/04/24 12:07 Pulse Ox 97 02/04/24 12:07 FiO2 Intake & Output 02/03/24 02/04/24 02/04/24 18:59 06:59 18:59 Intake Total 449 Balance 449 Intake: Oral 449 Other: Voiding Method Diaper Toilet Diaper External Catheter # Voids 1 2 1 # Bowel Movements 1 - Labs CBC & Chem 7: 01/31/24 04:11 01/31/24 04:11 Labs: Abnormal Lab Results - Last 24 Hours (Table) 02/03/24 02/03/24 02/04/24 Range/Units 17:02 20:13 07:06 POC Glucose (mg/dL) 201 H 186 H 139 H (70-110) mg/dL 02/04/24 Range/Units 12:27 POC Glucose (mg/dL) 136 H (70-110) mg/dL
[2024-02-04 16:53] LABS: Glucose,Whole Blood 154 mg/dL (70-110)
[2024-02-04 19:14] VITALS: RESP 16
[2024-02-04 20:20] LABS: Glucose,Whole Blood 197 mg/dL (70-110)
[2024-02-05 07:21] LABS: Glucose,Whole Blood 149 mg/dL (70-110)
[2024-02-05] MEDS ORDERED: IOPAMIDOL M200 10 ML VIAL ONE (10:31)
[2024-02-05] MEDS ORDERED: methylPREDNISolone ACETATE 40 MG/ML 1 ML VIAL ONE (10:31)
--- NOTE | 2024-02-05 10:38 | P.PCN ---
Date of Procedure: 02/05/24 Procedure(s) Performed: PREOPERATIVE DIAGNOSIS: 1- Lumbar radiculopathy 2-lumbar spinal stenosis POSTOPERATIVE DIAGNOSIS: Same as preop diagnosis PROCEDURE 1. Lumbar epidural steroid injection under fluoroscopic guidance at the L4-5 level. (Fluoroscopy imaging was available in radiology department) 2. Lumbar epidurogram. ANESTHESIA: Lidocaine 1% 3 and then only. EBL: Minimal PROCEDURE INDICATION: The patient with low back pain and radiculitis symptoms unresponsive to conservative treatment. Fluoroscopy was used to optimize visualization of the needle placement and to maximize safety. PROCEDURE DESCRIPTION / TECHNIQUE: The patient was seen and identified in the preoperative area. Risks, benefits, complications including but not limited to infections ,bleeding ,allergic reaction to the medications ,nerve damage and not complete pain releife , and alternatives were discussed with the patient. The patient agreed to proceed with the procedure and signed the consent, and vital signs were stable. Patient was taken to the OR and time out was completed. The patient was placed in the prone position on procedure table and a pillow was placed under the abdomen to reduce lumbar lordosis. The lumbosacral area was prepped and draped in the usual sterile fashion.ere closely monitored during the procedure. Vital signs was monitered during the entire procedure. Using anterior-posterior fluoroscopy, the L4-5 interlaminar space was identified and the skin over this site was marked and then infiltrated with 1% lidocaine subcutaneously. Subsequently, a 20-gauge Tuohy epidural needle was inserted and advanced toward the epidural space using the ``Loss of resistance technique and guided by AP and lateral fluoroscopy. The correct needle position in the epidural space was verified with the injection of 2 mL of the water soluble contrast dye Isovue 200 contrast and observing an excellent epidurogram with the epidural spread of the dye, after negative aspiration for blood and CSF and in the absence of paresthesias. Again after negative aspiration, a 6 ml mixture containing 40 mg of Depo-medrol ( Preservetive Free ), and 2 ml of preservative free Normal Saline, and 2 ml of preservative free lidocaine 1% solution was injected and a washout of epidurogram was seen. Needle was withdrawn intact, skin was cleansed, and bandages were applied. COMPLICATIONS: None DISPOSITION / PLANS: The patient was placed in a supine position and transferred to the recovery area in a stable condition for observation. There was no evidence of lower extremity motor or sensory deficit after the procedure. Patient was discharged from the recovery room after meeting discharge criteria. Home discharge instructions were given to the patient by the staff. The patient was reexamined prior to discharge. The patient will schedule a follow up in the clinic in 2-4 weeks.
--- NOTE | 2024-02-05 11:05 | FL ---
Fluoroscopy guided pain management. HISTORY: Epidural injection for back pain. COMPARISON: None. TECHNIQUE: 6.8 seconds of fluoroscopy and single spot film of the lower lumbar spine were obtained. FINDINGS: Single spot film demonstrates needle in the midline lower lumbar spine overlying the L4-5 space. 0.8 seconds of fluoroscopy was provided for the epidural injection. IMPRESSION: L4-5 midline epidural procedure as described above. [facility], Workstation: MYLES 02/05/2024 11:03 AM
--- NOTE | 2024-02-05 11:59 | P.DS ---
Providers Date of admission: 01/30/24 14:56 Attending physician: Ramos Pickard Consults: 01/31/24 15:45 Consult Physician Routine Consulting Provider: Elkin Hernandez Consult Reason/Comments: mod-severe spinal canal stenosis Do you want consulting provider notified?: Yes [facility] Course: Discharge Diagnosis: Moderate severe spinal canal stenosis Normocytic anemia Subclinical hypothyroidism Hypertension Dyslipidemia Diabetes mellitus Hospital Course: 88 year old F with PMH of HTN, HLD, Hypothyroidism, DM presents to the ED. She underwent eye surgery 2 weeks ago at [facility]. Previously able to ambulate with a walker, now finds it difficult to bear weight. She denies any back pain, bladder or bowel incontinence or saddle anesthesia. She reports no other complaints. In the ED she underwent extensive evaluation. BP 125/78, HR 76, RR 18, T 98.2F, 98% on RA. CBC, CMP, Coag panel significant for RBC 3.39, Hg 10.7, Hct 32.6, Plt 146, Cl 108, BUN 24, glu 149. Trop < 0.012 x 1. TSH 0.158, FT4 1.51. Lactic acid 1.3. UA mod LE with 7 WBCs. EKG sinus rhythm with first degree AV block. CXR negative. CT brain chronic small vessel disease, mucosal sinus disease. Patient is admitted for lower extremity weakness. CT L spine showed mod-severe spinal canal stenosis. Dr. Hernandez consulted. MRI L spine showed moderate spinal canal stenosis. Dr. Hernandez recommended epidural steroid injection. This was done by pain management. The procedure was uncomplicated. Patient was then deemed stable for [facility]. Patient seen and examined at bedside.[] Vital signs reviewed and stable. 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 Patient discharged on [02/05/2024] Plan - Discharge Summary Discharge Rx Participant: No New Discharge Prescriptions: New Nystatin 100,000 Unit/gm Powd [Mycostatin Powder] 1 applic TOPICAL BID #0 each amLODIPine [Norvasc] 10 mg PO DAILY tab Continue Simvastatin [Zocor] 40 mg PO HS Pioglitazone [Actos] 15 mg PO QAM lisinopriL [Zestril] 10 mg PO QAM Levothyroxine Sodium [Synthroid] 100 mcg PO DAILY Furosemide [Lasix] 20 mg PO Q2D Ascorbic Acid [Vitamin C] 500 mg PO DAILY Aspirin 81 mg PO DAILY Brimonidine Tartrate [Alphagan P 0.2% Ophth Soln] 1 drop RIGHT EYE BID Cider Vinegar [Apple Cider Vinegar] 300 mg PO DAILY metFORMIN HCL [Glucophage] 500 mg PO HS Biotin [Otix-Ysfb-Majmh] 10,000 mcg PO DAILY prednisoLONE ACETATE 1% OPHTH [Pred Forte 1%] 1 drop RIGHT EYE TID Ergocalciferol [Vitamin D2 (1250 Mcg = 29699 Iu)] 1,250 mcg PO Q14D Discharge Medication List Ascorbic Acid [Vitamin C] 500 mg PO DAILY 02/02/19 [History] Furosemide [Lasix] 20 mg PO Q2D 02/02/19 [History] Levothyroxine Sodium [Synthroid] 100 mcg PO DAILY 02/02/19 [History] Pioglitazone [Actos] 15 mg PO QAM 02/02/19 [History] Simvastatin [Zocor] 40 mg PO HS 02/02/19 [History] lisinopriL [Zestril] 10 mg PO QAM 02/02/19 [History] Aspirin 81 mg PO DAILY 01/30/24 [History] Biotin [Eyfh-Zuvk-Ylubb] 10,000 mcg PO DAILY 01/30/24 [History] Brimonidine Tartrate [Alphagan P 0.2% Ophth Soln] 1 drop RIGHT EYE BID 01/30/24 [History] Cider Vinegar [Apple Cider Vinegar] 300 mg PO DAILY 01/30/24 [History] Ergocalciferol [Vitamin D2 (1250 Mcg = 79199 Iu)] 1,250 mcg PO Q14D 01/30/24 [History] metFORMIN HCL [Glucophage] 500 mg PO HS 01/30/24 [History] prednisoLONE ACETATE 1% OPHTH [Pred Forte 1%] 1 drop RIGHT EYE TID 01/30/24 [History] Nystatin 100,000 Unit/gm Powd [Mycostatin Powder] 1 applic TOPICAL BID #0 each 02/05/24 [Rx] amLODIPine [Norvasc] 10 mg PO DAILY tab 02/05/24 [Rx] Follow up Appointment(s)/Referral(s): Nicolás Morales DO [Primary Care Provider] - 1-2 days Elkin Hernandez DO [Doctor of Osteopathic Medicine] - As Needed Patient Instructions/Handouts: Lumbar Radiculopathy (GEN) Discharge/Stand Alone Forms: Anes Pain/[place] Instructions Discharge Disposition: TRANSFER TO SNF/ECF
[2024-02-05 12:33] LABS: Glucose,Whole Blood 161 mg/dL (70-110)
[2024-02-05 12:44] VITALS: BP 127/82; PULSE 89; TEMP 97.4
[2024-02-05 14:44] VITALS: BMI 35.3
[2024-02-05 17:10] LABS: Glucose,Whole Blood 204 mg/dL (70-110)
== END 2024-02-05 17:28 | DRG 552 ==
LOC: EC 09:34 → 5NMEDONC 14:56
PROVIDERS: ADMIT Student in an Organized Health Care Education/Training Program; ATTEND Student in an Organized Health Care Education/Training Program
PROC: B01B1ZZ Fluoroscopy of Spinal Cord using Low Osmolar Contrast (ICD-10-PCS; 2024-02-05)
PROC: 3E0R33Z Introduction of Anti-inflammatory into Spinal Canal, Percutaneous Approach (ICD-10-PCS; principal; 2024-02-05 15:15)
DX: M47.816 Spondylosis without myelopathy or radiculopathy, lumbar region (principal); R53.1 Weakness; M48.061 Spinal stenosis, lumbar region without neurogenic claudication; I10 Essential (primary) hypertension; H54.62 Unqualified visual loss, left eye, normal vision right eye; E86.0 Dehydration; E78.5 Hyperlipidemia, unspecified; J32.8 Other chronic sinusitis; E11.9 Type 2 diabetes mellitus without complications; I44.0 Atrioventricular block, first degree; D69.6 Thrombocytopenia, unspecified; D64.9 Anemia, unspecified; E03.9 Hypothyroidism, unspecified; E05.90 Thyrotoxicosis, unspecified without thyrotoxic crisis or storm; Z85.3 Personal history of malignant neoplasm of breast; M47.26 Other spondylosis with radiculopathy, lumbar region; Z79.890 Hormone replacement therapy; Z87.891 Personal history of nicotine dependence; Z86.000 Personal history of in-situ neoplasm of breast; Z79.82 Long term (current) use of aspirin; Z79.4 Long term (current) use of insulin; Z90.710 Acquired absence of both cervix and uterus; Z79.84 Long term (current) use of oral hypoglycemic drugs; Z79.899 Other long term (current) drug therapy; Z91.040 Latex allergy status
CPT/HCPCS: 36415; 62323; 70450; 71046; 72131; 72148; 80053; 81001; 83605; 83735; 84439; 84443; 84481; 84484; 85025; 85610; 85730; 93005; 94760; 96360; 96361; 99285

== ENCOUNTER 2024-05-25 12:54 | Inpatient (IN) | payer MEDICARE, BC ==
[2024-05-25 14:15] LABS: Basophils % (A) 0 %; Eosinophils % (A) 0 %; HCT 35.9 % (34.0-46.0); HGB 12.2 gm/dL (11.4-16.0); Lymphocytes # (A) 2.9 k/uL (1.0-4.8); Lymphocytes % (A) 27 %; MCH 31.8 pg (25.0-35.0); MCV 93.8 fL (80.0-100.0); Mean Platelet Volume 8.1; Monocytes # (A) 0.5 k/uL (0-1.0); Monocytes % (A) 5 %; Neutrophils # (A) 7.2 k/uL (1.3-7.7); Neutrophils % (A) 67 %; Platelet Count 187 k/uL (150-450); RBC 3.83 m/uL (3.80-5.40); RDW 13.6 % (11.5-15.5); WBC 10.8 k/uL (3.8-10.6)
[2024-05-25 14:27] LABS: ALT 16 U/L (4-34); AST 22 U/L (14-36); African American GFR (CKD) 61 (>60 ml/min/1.73 sqM); Albumin 4.2 g/dL (3.5-5.0); Alcohol <10 mg/dL; Alkaline Phosphatase 61 U/L (38-126); Anion Gap 14 mmol/L; Blood Urea Nitrogen 40 mg/dL (7-17); Calcium 10.2 mg/dL (8.4-10.2); Carbon Dioxide 21 mmol/L (22-30); Chloride 103 mmol/L (98-107); Glucose 133 mg/dL (74-99); Magnesium 1.5 mg/dL (1.6-2.3); Non-African American GFR(CKD) 53 (>60 ml/min/1.73 sqM); Sodium 138 mmol/L (137-145); Total Bilirubin 0.5 mg/dL (0.2-1.3); Total Protein 7.7 g/dL (6.3-8.2)
[2024-05-25 15:22] LABS: Appearance,Urine Cloudy (Clear); Bilirubin,Urine Negative (Negative); Blood,Urine Negative (Negative); Color,Urine Yellow; Glucose,Urine (UA) Negative (Negative); Ketones,Urine Negative (Negative); Leukocyte Esterase,Urine Large (Negative); Mucus,Urine Occasional /hpf; Nitrite,Urine Negative (Negative); PH, Urine 5.5 (5.0-8.0); Protein,Urine Trace (Negative); RBC,Urine 3 /hpf (0-5); Specific Gravity,Urine 1.029 (1.001-1.035); Squamous Epithelial Cell,Urine 5 /hpf (0-4); WBC,Urine 46 /hpf (0-5)
--- NOTE | 2024-05-25 16:32 | ED ---
Weakness HPI - General Source: patient, family, RN notes reviewed Mode of arrival: wheelchair Limitations: no limitations - History of Present Illness MD Complaint: generalized weakness <Elise Dyer - Last Filed: 05/25/24 20:23> <Rigo Salcido - Last Filed: 05/26/24 12:40> - General Chief complaint: Psychiatric Symptoms Stated complaint: Urogenital Time Seen by Provider: 05/25/24 16:05 - History of Present Illness Initial comments: This is an 89-year-old female who presents to the emergency department for generalized weakness. Patient states that she was discharged from [facility] in March. Since being home she has continued to get progressively weaker and more depressed. States that she is unable to get up or move around. She is not eating or taking care of herself. States that she is in fear every day that she will fall and get hurt. Patient is very tearful and states that she does not want to take care of herself anymore. She is messing up how she takes her medications. States that she is feeling very depressed and is having thoughts of just throwing herself down the stairs to end her life because she cannot keep going on like this at home anymore. She does currently live by herself. (Elise Dyer) - Related Data Home Medications Medication Instructions Recorded Confirmed Ascorbic Acid [Vitamin C] 500 mg PO DAILY 02/02/19 05/26/24 Furosemide [Lasix] 20 mg PO Q2D 02/02/19 05/26/24 Levothyroxine Sodium [Synthroid] 100 mcg PO [id number] 02/02/19 05/26/24 Pioglitazone [Actos] 15 mg PO DAILY 02/02/19 05/26/24 Simvastatin [Zocor] 40 mg PO HS 02/02/19 05/26/24 lisinopriL [Zestril] 10 mg PO DAILY 02/02/19 05/26/24 Aspirin 81 mg PO DAILY 01/30/24 05/26/24 Ergocalciferol [Vitamin D2 (1250 1,250 mcg PO Q14D 01/30/24 05/26/24 Mcg = 01383 Iu)] metFORMIN HCL [Glucophage] 500 mg PO HS 01/30/24 05/26/24 Apple Cider Vinegar 500mg 500 mg PO DAILY 05/26/24 05/26/24 Docusate [Colace] 100 mg PO HS 05/26/24 05/26/24 Allergies Allergy/AdvReac Type Severity Reaction Status Date / Time Latex, Natural Rubber Allergy red skin Verified 05/26/24 10:48 Review of Systems ROS Other: All systems not noted in ROS Statement are negative. <Elise Dyer - Last Filed: 05/25/24 20:23> ROS Other: All systems not noted in ROS Statement are negative. <Rigo Salcido - Last Filed: 05/26/24 12:40> ROS Statement: Those systems with pertinent positive or pertinent negative responses have been documented in the HPI. Past Medical History Past Medical History: Cancer, Diabetes Mellitus, Hyperlipidemia, Hypertension, Osteoarthritis (OA), Sleep Apnea/CPAP/BIPAP, Thyroid Disorder Additional Past Medical History / Comment(s): uses CPAP, SOB w/exertion, hx. he art murmur, hx. breast cancer insitu 2004, frequent loose stools, blind in left eye, pt does not use CPAP post weight loss, skin cancer History of Any Multi-Drug Resistant Organisms: None Reported Past Surgical History: Appendectomy, Breast Surgery, Hysterectomy Additional Past Surgical History / Comment(s): symone. mastectomy, eye surgery 01/15/24 - blind in left eye Past Anesthesia/Blood Transfusion Reactions: No Reported Reaction Past Psychological History: No Psychological Hx Reported Smoking Status: Former smoker Past Alcohol Use History: None Reported Past Drug Use History: None Reported <Elise Dyer - Last Filed: 05/25/24 20:23> General Exam Limitations: no limitations General appearance: alert, in distress Head exam: Present: atraumatic, normocephalic, normal inspection Respiratory exam: Present: normal lung sounds bilaterally. Absent: respiratory distress, wheezes, rales, rhonchi, stridor Cardiovascular Exam: Present: regular rate, normal rhythm Neurological exam: Present: alert, oriented X3, CN II-XII intact Psychiatric exam: Present: depressed, suicidal ideation Skin exam: Present: warm, dry, intact, normal color. Absent: rash <Elise Dyer - Last Filed: 05/25/24 20:23> Course Vital Signs 05/25/24 05/25/24 05/26/24 13:21 19:46 05:14 Temperature 98.0 F 98.1 F 97.4 F L Pulse Rate 92 74 73 Respiratory 18 18 22 Rate Blood Pressure 136/72 105/54 104/65 O2 Sat by Pulse 100 98 98 Oximetry 05/26/24 05/26/24 05/26/24 08:00 09:00 11:00 Temperature 98.5 F Pulse Rate 78 68 86 Respiratory 16 16 20 Rate Blood Pressure 110/60 135/68 135/68 O2 Sat by Pulse 96 98 98 Oximetry 05/26/24 11:02 Temperature Pulse Rate 85 Respiratory 20 Rate Blood Pressure 135/62 O2 Sat by Pulse 98 Oximetry Medical Decision Making - Lab Data Result diagrams: 05/25/24 13:59 05/25/24 13:59 <Elise Dyer - Last Filed: 05/25/24 20:23> - Lab Data Result diagrams: 05/25/24 13:59 05/25/24 13:59 <Rigo Salcido - Last Filed: 05/26/24 12:40> - Medical Decision Making This is an 89 year old female who presents to the emergency department for weakness and psychiatric evaluation. Was pt. sent in by a medical professional or institution? @ -No Did you speak to anyone other than the patient for history? @ -No Did you review nursing and triage notes? @ -Yes, and I agree, it is accurate with regards to the patient's symptoms. Were old charts reviewed? @ -No Differential Diagnosis? @ -Differential Weakness: Hypoglycemia, shock, sepsis, hyponatremia, anemia, infection, NH, ETOH, adverse medicine reaction, overdose, stroke, this is not meant to be an all-inclusive list. EKG interpreted by me (3pts min.)? @ -EKG interpreted by me demonstrating the following: Sinus rhythm. Ventricular rate 79 bpm, CT interval 193 ms, QRS duration 84 ms, QTc 394 ms. X-rays interpreted by me (1pt min.)? @ -Not obtained CT interpreted by me (1pt min.)? @ -Not obtained U/S interpreted by me (1pt. min.)? @ -Not obtained What testing was considered but not performed? (CT, X-rays, U/S, labs)? Why? @ -None What meds were considered but not given? Why? @ -None Did you discuss the management of the patient with other professionals? @ -No Did you reconcile home meds? @ -No Was smoking cessation discussed for >3mins.? @ -No Was critical care preformed (if so, how long)? @ -No Were there social determinants of health that impacted care today? How? (Homelessness, low income, unemployed, alcoholism, drug addiction, transportation, low edu. Level, literacy, decrease access to med. care, nursing home, rehab)? @ -No Was there de-escalation of care discussed even if they declined? (Discuss DNR or withdrawal of care, Hospice)? @ -No What co-morbidities impacted this encounter? (DM, HTN, Smoking, COPD, CAD, Cancer, CVA, Hep., AIDS, mental health diagnosis, sleep apnea, morbid obesity)? @ -DM, HLD, HTN Was patient admitted / discharged? @ -Lab work demonstrates mild leukocytosis of 10.8 and a lactic acid of 3.6. Lab work otherwise unremarkable. Urinalysis potentially suggestive of infection with the elevated WBCs and large leukocyte esterase. There is some contamination associated with this. She does report a history of UTIs and given this possibility, urine was sent for culture and she was given 1 g of ceftria xone. Due to the patient saying she is actively suicidal with a plan to throw herself down the stairs, psychiatric protocol was initiated. We did obtain an alcohol level on her lab work which was negative and she was cleared for EPS evaluation. Undiagnosed new problem with uncertain prognosis? @ -None Drug Therapy requiring intensive monitoring for toxicity (Heparin, Nitro, Insulin, Cardizem)? @ -None Were any procedures done? @ -None (Elise Dyer) Patient seen by mental health services. They do not feel patient needs mental health care and can be discharged I did speak with mental health worker. Patient reevaluated myself. Patient and family have concern regarding her being at home alone. They state she is unable to take care of herself. Unable to shower. Unable to make meals. Unable to use restroom on her own. They feel patient will need placement. Lab evaluation does have concern with urinary tract infection. Antibiotics have already been started earlier. Patient will be admitted with social work consult. Patient and family updated. Case was discussed with Dr. Jensen who will admit covering hospital call. On reevaluation patient denies depression and denies suicidal ideation. Diagnosis: Urinary tract infection, weakness acuity: Acute, acute (Rigo Salcido) - Lab Data Lab Results 05/25/24 05/25/24 05/25/24 Range/Units 13:59 13:59 13:59 WBC 10.8 H (3.8-10.6) k/uL RBC 3.83 (3.80-5.40) m/uL Hgb 12.2 (11.4-16.0) gm/dL Hct 35.9 (34.0-46.0) % MCV 93.8 (80.0-100.0) fL MCH 31.8 (25.0-35.0) pg MCHC 34.0 (31.0-37.0) g/dL RDW 13.6 (11.5-15.5) % Plt Count 187 (150-450) k/uL MPV 8.1 Neutrophils % 67 % Lymphocytes % 27 % Monocytes % 5 % Eosinophils % 0 % Basophils % 0 % Neutrophils # 7.2 (1.3-7.7) k/uL Lymphocytes # 2.9 (1.0-4.8) k/uL Monocytes # 0.5 (0-1.0) k/uL Eosinophils # 0.0 (0-0.7) k/uL Basophils # 0.0 (0-0.2) k/uL Sodium 138 (137-145) mmol/L Potassium 5.0 (3.5-5.1) mmol/L Chloride 103 (98-107) mmol/L Carbon Dioxide 21 L (22-30) mmol/L Anion Gap 14 mmol/L BUN 40 H (7-17) mg/dL Creatinine 0.97 (0.52-1.04) mg/dL Est GFR (CKD-EPI)AfAm 61 (>60 ml/min/1.73 sqM) Est GFR (CKD-EPI)NonAf 53 (>60 ml/min/1.73 sqM) Glucose 133 H (74-99) mg/dL Lactic Ac Sepsis Rflx Plasma Lactic Acid Guillermo 3.6 H* (0.7-2.0) mmol/L Calcium 10.2 (8.4-10.2) mg/dL Magnesium 1.5 L (1.6-2.3) mg/dL Total Bilirubin 0.5 (0.2-1.3) mg/dL AST 22 (14-36) U/L ALT 16 (4-34) U/L Alkaline Phosphatase 61 (38-126) U/L Creatine Kinase (30-135) U/L Total Protein 7.7 (6.3-8.2) g/dL Albumin 4.2 (3.5-5.0) g/dL Urine Color Urine Appearance (Clear) Urine pH (5.0-8.0) Ur Specific [place] (1.001-1.035) Urine Protein (Negative) Urine Glucose (UA) (Negative) Urine Ketones (Negative) Urine Blood (Negative) Urine Nitrite (Negative) Urine Bilirubin (Negative) Urine Urobilinogen (<2.0) mg/dL Ur Leukocyte Esterase (Negative) Urine RBC (0-5) /hpf Urine WBC (0-5) /hpf Ur Squamous Epith Cells (0-4) /hpf Urine Mucus (None) /hpf Serum Alcohol <10 mg/dL 05/25/24 05/25/24 05/25/24 Range/Units 13:59 14:44 15:09 WBC (3.8-10.6) k/uL RBC (3.80-5.40) m/uL Hgb (11.4-16.0) gm/dL Hct (34.0-46.0) % MCV (80.0-100.0) fL MCH (25.0-35.0) pg MCHC (31.0-37.0) g/dL RDW (11.5-15.5) % Plt Count (150-450) k/uL MPV Neutrophils % % Lymphocytes % % Monocytes % % Eosinophils % % Basophils % % Neutrophils # (1.3-7.7) k/uL Lymphocytes # (1.0-4.8) k/uL Monocytes # (0-1.0) k/uL Eosinophils # (0-0.7) k/uL Basophils # (0-0.2) k/uL Sodium (137-145) mmol/L Potassium (3.5-5.1) mmol/L Chloride (98-107) mmol/L Carbon Dioxide (22-30) mmol/L Anion Gap mmol/L BUN (7-17) mg/dL Creatinine (0.52-1.04) mg/dL Est GFR (CKD-EPI)AfAm (>60 ml/min/1.73 sqM) Est GFR (CKD-EPI)NonAf (>60 ml/min/1.73 sqM) Glucose (74-99) mg/dL Lactic Ac Sepsis Rflx Y Plasma Lactic Acid Guillermo (0.7-2.0) mmol/L Calcium (8.4-10.2) mg/dL Magnesium (1.6-2.3) mg/dL Total Bilirubin (0.2-1.3) mg/dL AST (14-36) U/L ALT (4-34) U/L Alkaline Phosphatase (38-126) U/L Creatine Kinase <20 L (30-135) U/L Total Protein (6.3-8.2) g/dL Albumin (3.5-5.0) g/dL Urine Color Yellow Urine Appearance Cloudy H (Clear) Urine pH 5.5 (5.0-8.0) Ur Specific [place] 1.029 (1.001-1.035) Urine Protein Trace H (Negative) Urine Glucose (UA) Negative (Negative) Urine Ketones Negative (Negative) Urine Blood Negative (Negative) Urine Nitrite Negative (Negative) Urine Bilirubin Negative (Negative) Urine Urobilinogen 2.0 (<2.0) mg/dL Ur Leukocyte Esterase Large H (Negative) Urine RBC 3 (0-5) /hpf Urine WBC 46 H (0-5) /hpf Ur Squamous Epith Cells 5 H (0-4) /hpf Urine Mucus Occasional H (None) /hpf Serum Alcohol mg/dL 05/25/24 Range/Units 17:02 WBC (3.8-10.6) k/uL RBC (3.80-5.40) m/uL Hgb (11.4-16.0) gm/dL Hct (34.0-46.0) % MCV (80.0-100.0) fL MCH (25.0-35.0) pg MCHC (31.0-37.0) g/dL RDW (11.5-15.5) % Plt Count (150-450) k/uL MPV Neutrophils % % Lymphocytes % % Monocytes % % Eosinophils % % Basophils % % Neutrophils # (1.3-7.7) k/uL Lymphocytes # (1.0-4.8) k/uL Monocytes # (0-1.0) k/uL Eosinophils # (0-0.7) k/uL Basophils # (0-0.2) k/uL Sodium (137-145) mmol/L Potassium (3.5-5.1) mmol/L Chloride (98-107) mmol/L Carbon Dioxide (22-30) mmol/L Anion Gap mmol/L BUN (7-17) mg/dL Creatinine (0.52-1.04) mg/dL Est GFR (CKD-EPI)AfAm (>60 ml/min/1.73 sqM) Est GFR (CKD-EPI)NonAf (>60 ml/min/1.73 sqM) Glucose (74-99) mg/dL Lactic Ac Sepsis Rflx Plasma Lactic Acid Guillermo 1.3 (0.7-2.0) mmol/L Calcium (8.4-10.2) mg/dL Magnesium (1.6-2.3) mg/dL Total Bilirubin (0.2-1.3) mg/dL AST (14-36) U/L ALT (4-34) U/L Alkaline Phosphatase (38-126) U/L Creatine Kinase (30-135) U/L Total Protein (6.3-8.2) g/dL Albumin (3.5-5.0) g/dL Urine Color Urine Appearance (Clear) Urine pH (5.0-8.0) Ur Specific [place] (1.001-1.035) Urine Protein (Negative) Urine Glucose (UA) (Negative) Urine Ketones (Negative) Urine Blood (Negative) Urine Nitrite (Negative) Urine Bilirubin (Negative) Urine Urobilinogen (<2.0) mg/dL Ur Leukocyte Esterase (Negative) Urine RBC (0-5) /hpf Urine WBC (0-5) /hpf Ur Squamous Epith Cells (0-4) /hpf Urine Mucus (None) /hpf Serum Alcohol mg/dL Disposition <Elise Dyer - Last Filed: 05/25/24 20:23> Is patient prescribed a controlled substance at d/c from ED?: No Time of Disposition: 12:40 <Rigo Salcido - Last Filed: 05/26/24 12:40> Clinical Impression: Urinary tract infection Disposition: ADMITTED IP TO THIS HOSP Referrals: Nicolás Morales DO [Primary Care Provider] - 1-2 days
[2024-05-25] MEDS: MAGNESIUM OXIDE 400 MG TAB PO STA (16:57)
[2024-05-25] MEDS: SODIUM CHLORIDE 0.9% 1,000 ML IV STA (17:00)
[2024-05-25] MEDS: cefTRIAXone IN SWFI 1,000 MG/10 ML SYRINGE IVP STA (17:00)
[2024-05-26] MEDS ORDERED: NALOXONE 0.4 MG/ML 1 ML VIAL IV PRN (12:41)
[2024-05-26] MEDS ORDERED: ACETAMINOPHEN TAB 325 MG TAB PO PRN (12:41)
[2024-05-26] MEDS: LEVOTHYROXINE 100 MCG TAB PO SCH (13:06)
--- NOTE | 2024-05-26 19:00 | P.HPIM ---
History of Present Illness H&P Date: 05/26/24 88 year old F with PMH of HTN, HLD, Hypothyroidism, DM presents to the ED. She reports progressive difficulties dealing with her ADLs and IADLs. Reports dysuria and generalized weakness. Ambulates with the aid of a walker. Lives alone. In the ED she underwent extensive evaluation. BP 136/72, HR 92, RR 18, T 98F, 100% on RA. CBC, CMP, Coag panel significant for WBC 10.8, bicarb 21, BUN 40, glu 133. Mag 1.5. Lactic acid 3.6. CPK < 20. UA large LE. EtOH neg. EKG NSR. Patient is admitted for UTI and inability to take care of ADL and IADLs. General: non toxic, no distress, appears at stated age Derm: warm, dry Head: atraumatic, normocephalic, symmetric Eyes: EOMI, no lid lag, anicteric sclera Mouth: no lip lesion, mucus membranes moist Cardiovascular: S1S2 reg, no murmur Lungs: Clear to auscultation bilaterally, no rhonchi, no rales , no accessory muscle use Abd: Non distended. Non tender to palpation. Soft. Ext: no gross muscle atrophy, no edema, no contractures Neuro: no focal neuro deficits Psych: Alert, oriented, appropriate affect Based on my assessment of this patient, this patient meets a high complexity level of care. Debility and lower extremity weakness UTI Prerenal azotemia Lactic acidosis Hypertension Dyslipidemia Hypothyroidism Diabetes mellitus Fall precautions. PT and OT consult. Rocephin 1g IV BID for UTI. Follow UCx. Normal saline at 50 cc/hr. Trend lactic acid until negative. Restart home medications. CODE STATUS: NO CODE. DVT Prophylaxis: Lovenox SQ. GI Prophylaxis: Designated medical POA if patient is not able to make medical decisions for themselves: Daughters I have reviewed the following network relations consultant notes: ED note. I have reviewed the results of the following tests: As above. I have ordered the following tests: As above. I have discussed the care of this patient with the following independent historian: I have independently interpreted the following test below: EKG. I have discussed the management of this patient with the following physician: Past Medical History Past Medical History: Cancer, Diabetes Mellitus, Hyperlipidemia, Hypertension, Osteoarthritis (OA), Sleep Apnea/CPAP/BIPAP, Thyroid Disorder Additional Past Medical History / Comment(s): uses CPAP, SOB w/exertion, hx. heart murmur, hx. breast cancer insitu 2004, frequent loose stools, blind in left eye, pt does not use CPAP post weight loss, skin cancer History of Any Multi-Drug Resistant Organisms: None Reported Past Surgical History: Appendectomy, Breast Surgery, Hysterectomy Additional Past Surgical History / Comment(s): symone. mastectomy, eye surgery 01/15/24 - blind in left eye Past Anesthesia/Blood Transfusion Reactions: No Reported Reaction Past Psychological History: No Psychological Hx Reported Smoking Status: Former smoker Past Alcohol Use History: None Reported Past Drug Use History: None Reported Medications and Allergies Home Medications Medication Instructions Recorded Confirmed Type Ascorbic Acid [Vitamin C] 500 mg PO DAILY 02/02/19 05/26/24 History Furosemide [Lasix] 20 mg PO Q2D 02/02/19 05/26/24 History Levothyroxine Sodium [Synthroid] 100 mcg PO MOTUWETHFRSA 02/02/19 05/26/24 History Pioglitazone [Actos] 15 mg PO DAILY 02/02/19 05/26/24 History Simvastatin [Zocor] 40 mg PO HS 02/02/19 05/26/24 History lisinopriL [Zestril] 10 mg PO DAILY 02/02/19 05/26/24 History Aspirin 81 mg PO DAILY 01/30/24 05/26/24 History Ergocalciferol [Vitamin D2 (1250 1,250 mcg PO Q14D 01/30/24 05/26/24 History Mcg = 72107 Iu)] metFORMIN HCL [Glucophage] 500 mg PO HS 01/30/24 05/26/24 History Apple Cider Vinegar 500mg 500 mg PO DAILY 05/26/24 05/26/24 History Docusate [Colace] 100 mg PO HS 05/26/24 05/26/24 History Allergies Allergy/AdvReac Type Severity Reaction Status Date / Time Latex, Natural Rubber Allergy red skin Verified 05/26/24 10:48 Physical Exam Vitals: Vital Signs Temp Pulse Resp BP Pulse Ox 05/26/24 18:26 98.2 F 82 20 146/95 99 05/26/24 14:45 65 20 115/74 98 05/26/24 13:51 75 20 130/65 98 05/26/24 11:02 85 20 135/62 98 05/26/24 11:00 86 20 135/68 98 05/26/24 09:00 98.5 F 68 16 135/68 98 05/26/24 08:00 78 16 110/60 96 05/26/24 05:14 97.4 F L 73 22 104/65 98 05/25/24 19:46 98.1 F 74 18 105/54 98 Intake and Output 05/26/24 05/26/24 05/26/24 06:59 14:59 22:59 Output Total 250 Balance -250 Output: Urine 250 Straight 250 Other: # Voids 1 Results CBC & Chem 7: 05/25/24 13:59 05/25/24 13:59
[2024-05-26] MEDS: SODIUM CHLORIDE 0.9% 1,000 ML IV SCH (20:10)
[2024-05-26 20:35] LABS: Glucose,Whole Blood 164 mg/dL (70-110)
[2024-05-26] MEDS ORDERED: metFORMIN 500 MG TAB PO SCH (21:00)
[2024-05-26] MEDS: ATORVASTATIN 20 MG TAB PO SCH (22:32)
[2024-05-26] MEDS: DOCUSATE 100 MG CAP PO SCH (22:32)
[2024-05-27 07:18] LABS: Glucose,Whole Blood 129 mg/dL (70-110)
[2024-05-27 08:57] LABS: Basophils # (A) 0.02 X 10*3/uL (0.00-0.10); Basophils % (A) 0.3 %; Eosinophils # (A) 0.07 X 10*3/uL (0.04-0.35); Eosinophils % (A) 1.2 %; HCT 31.9 % (37.2-46.3); HGB 10.4 g/dL (12.0-15.0); Lymphocytes # (A) 1.91 X 10*3/uL (0.90-5.00); Lymphocytes % (A) 32.3 %; MCHC 32.6 g/dL (32.0-37.0); MCV 94.9 FL (80.0-97.0); Mean Platelet Volume 11.1 FL (9.5-12.2); Monocytes # (A) 0.41 X 10*3/uL (0.20-1.00); Monocytes % (A) 6.9 %; NRBC Per 100 WBC 0 X 10*3/uL (0.00-0.01); Neutrophils # (A) 3.48 X 10*3/uL (1.80-7.70); Platelet Count 149 X 10*3/uL (140-440); RBC 3.36 X 10*6/uL (4.10-5.20); RDW 13.6 % (11.5-14.5); WBC 5.91 X 10*3/uL (4.50-10.00)
[2024-05-27] MEDS ORDERED: PIOGLITAZONE 15 MG TAB PO SCH (09:00)
[2024-05-27 09:16] LABS: BUN/Creat Ratio 19.62 Ratio (12.00-20.00); Blood Urea Nitrogen 15.7 mg/dL (9.0-27.0); Calcium 9.1 mg/dL (8.7-10.3); Carbon Dioxide 23.9 mmol/L (21.6-31.8); Chloride 108 mmol/L (96-109); Glucose 130 mg/dL (70-110); Potassium 4.3 mmol/L (3.5-5.5); Sodium 141 mmol/L (135-145)
[2024-05-27] MEDS: ENOXAPARIN 40 MG/0.4 ML SYRINGE SQ SCH (11:41)
[2024-05-27] MEDS: FUROSEMIDE 20 MG TAB PO SCH (11:42)
[2024-05-27] MEDS: ASPIRIN 81 MG PO SCH (11:43)
[2024-05-27] MEDS: lisinopriL 10 MG TAB PO SCH (11:43)
[2024-05-27] MEDS: ASCORBIC ACID 500 MG TAB PO SCH (11:43)
[2024-05-27 16:36] VITALS: BMI 32.2
--- NOTE | 2024-05-27 17:20 | P.PN ---
Subjective Progress Note Date: 05/27/24 88 year old F with PMH of HTN, HLD, Hypothyroidism, DM presents to the ED. She reports progressive difficulties dealing with her ADLs and IADLs. Reports dysuria and generalized weakness. Ambulates with the aid of a walker. Lives alone. In the ED she underwent extensive evaluation. BP 136/72, HR 92, RR 18, T 98F, 100% on RA. CBC, CMP, Coag panel significant for WBC 10.8, bicarb 21, BUN 40, glu 133. Mag 1.5. Lactic acid 3.6. CPK < 20. UA large LE. EtOH neg. EKG NSR. Patient is admitted for UTI and inability to take care of ADL and IADLs. 05/27 Patient was seen and examined. No complaints. CBC and CMP significant for RBC 3.36, Hg 10.4, Hct 31.9, glu 130. BCx positive for presumptive staph epi. U Cx Aerococcus urinae. General: non toxic, no distress, appears at stated age Derm: warm, dry Head: atraumatic, normocephalic, symmetric Eyes: EOMI, no lid lag, anicteric sclera Mouth: no lip lesion Cardiovascular: good distal perfusion in all 4 extremities Lungs: breathing comfortably, no accessory muscle use Ext: no gross muscle atrophy, no edema, no contractures Neuro: no focal neuro deficits Psych: Alert, oriented, appropriate affect Based on my assessment of this patient, this patient meets a high complexity level of care. Debility and lower extremity weakness Bacteremia UTI Hypertension Dyslipidemia Hypothyroidism Diabetes mellitus Resolved: Lactic acidosis, prerenal azotemic Bacteremia likely contaminant. Fall precautions. PT and OT consult. Rocephin 1g IV BID for UTI. DC IVF. Continue home medications. Case management on board. CODE STATUS: NO CODE. DVT Prophylaxis: Lovenox SQ. GI Prophylaxis: Designated medical POA if patient is not able to make medical decisions for emselves: Daughters I have reviewed the following cosmetic consultant notes: I have reviewed the results of the following tests: As above. I have ordered the following tests: I have discussed the care of this patient with the following independent historian: I have independently interpreted the following test below: I have discussed the management of this patient with the following physician: Objective - Vital Signs Vital signs: Vital Signs Temp 98.2 F 05/27/24 13:27 Pulse 75 05/27/24 13:27 Resp 16 05/27/24 13:27 BP 122/72 05/27/24 13:27 Pulse Ox 99 05/27/24 13:27 FiO2 Intake & Output 05/26/24 05/27/24 05/27/24 18:59 06:59 18:59 Intake Total 400 120 Balance 400 120 Weight 85.275 kg 85.275 kg Intake: Oral 400 120 Other: # Voids 1 3 - Labs CBC & Chem 7: 05/27/24 06:09 05/27/24 06:09 Labs: Abnormal Lab Results - Last 24 Hours (Table) 05/26/24 05/27/24 05/27/24 Range/Units 20:33 06:09 06:09 RBC 3.36 L (4.10-5.20) X 10*6/uL Hgb 10.4 L (12.0-15.0) g/dL Hct 31.9 L (37.2-46.3) % Glucose 130 H (70-110) mg/dL POC Glucose (mg/dL) 164 H (70-110) mg/dL 05/27/24 Range/Units 07:16 RBC (4.10-5.20) X 10*6/uL Hgb (12.0-15.0) g/dL Hct (37.2-46.3) % Glucose (70-110) mg/dL POC Glucose (mg/dL) 129 H (70-110) mg/dL Microbiology - Last 24 Hours (Table) 05/25/24 16:42 Blood Culture Gram Stain - Preliminary Blood Blood Culture - Preliminary Molecular ID 05/25/24 16:08 Urine Culture - Final Urine,Catheterized Aerococcus urinae
[2024-05-28] MEDS: bisacodyL 10 MG SUPP RECTAL STA (14:16)
--- NOTE | 2024-05-28 17:08 | P.PN ---
Subjective Progress Note Date: 05/28/24 88 year old F with PMH of HTN, HLD, Hypothyroidism, DM presents to the ED. She reports progressive difficulties dealing with her ADLs and IADLs. Reports dysuria and generalized weakness. Ambulates with the aid of a walker. Lives alone. In the ED she underwent extensive evaluation. BP 136/72, HR 92, RR 18, T 98F, 100% on RA. CBC, CMP, Coag panel significant for WBC 10.8, bicarb 21, BUN 40, glu 133. Mag 1.5. Lactic acid 3.6. CPK < 20. UA large LE. EtOH neg. EKG NSR. Patient is admitted for UTI and inability to take care of ADL and IADLs. 05/27 Patient was seen and examined. No complaints. CBC and CMP significant for RBC 3.36, Hg 10.4, Hct 31.9, glu 130. BCx positive for presumptive staph epi. U Cx Aerococcus urinae. 05/28 Patient was seen and examined. Continues to complain of weakness and cons tipation, last BM last Fri. Discussed with Case management, plans for AFC on Friday. General: non toxic, no distress, appears at stated age Derm: warm, dry Head: atraumatic, normocephalic, symmetric Eyes: EOMI, no lid lag, anicteric sclera Mouth: no lip lesion, mucus membranes moist Cardiovascular: S1S2 reg, no murmur Lungs: Clear to auscultation bilaterally, no rhonchi, no rales , no accessory m uscle use Abd: Non distended. Non tender to palpation. Soft. Ext: no gross muscle atrophy, no edema, no contractures Neuro: no focal neuro deficits Psych: Alert, oriented, appropriate affect Based on my assessment of this patient, this patient meets a high complexity level of care. Debility and lower extremity weakness Bacteremia UTI Hypertension Dyslipidemia Hypothyroidism Diabetes mellitus Resolved: Lactic acidosis, prerenal azotemic Bacteremia likely contaminant. Fall precautions. PT and OT consult. Rocephin 1g IV BID for UTI. DC IVF. Continue home medications. Case management on board. Anticipate DC on Friday. CODE STATUS: NO CODE. DVT Prophylaxis: Lovenox SQ. GI Prophylaxis: Designated medical POA if patient is not able to make medical decisions for themselves: Daughters I have reviewed the following applications sales consultant notes: I have reviewed the results of the following tests: As above. I have ordered the following tests: I have discussed the care of this patient with the following independent historian: RN. Case management. I have independently interpreted the following test below: I have discussed the management of this patient with the following physician: Objective - Vital Signs Vital signs: Vital Signs Temp 98.1 F 05/28/24 13:29 Pulse 68 05/28/24 13:29 Resp 16 05/28/24 13:29 BP 122/74 05/28/24 13:29 Pulse Ox 97 05/28/24 13:29 FiO2 Intake & Output 05/27/24 05/28/24 05/28/24 18:59 06:59 18:59 Intake Total 1800 240 Balance 1800 240 Weight 85.275 kg Intake: Intake, IV Titration 600 Amount Sodium Chloride 0.9% 1, 550 000 ml @ 50 mls/hr IV . Q20H [facility] Rx#:[id number] cefTRIAXone 1 gm In 50 Sodium Chloride 0.9% 50 ml @ 100 mls/hr IVPB Q12HR [facility] Rx#:[id number] Oral 1200 240 Other: Voiding Method Bedside Commode # Voids 3 2 - Labs CBC & Chem 7: 05/27/24 06:09 05/27/24 06:09 Labs: Microbiology - Last 24 Hours (Table) 05/25/24 16:42 Blood Culture Gram Stain - Preliminary Blood Blood Culture - Preliminary Staphylococcus epidermidis Molecular ID
[2024-05-28] MEDS: SENNOSIDES-DOCUSATE SODIUM 1 EACH TAB PO SCH (17:32)
[2024-05-28 21:20] LABS: Glucose,Whole Blood 213 mg/dL (70-110)
--- NOTE | 2024-05-29 17:12 | P.PN ---
Subjective Progress Note Date: 05/29/24 88 year old F with PMH of HTN, HLD, Hypothyroidism, DM presents to the ED. She reports progressive difficulties dealing with her ADLs and IADLs. Reports dysuria and generalized weakness. Ambulates with the aid of a walker. Lives alone. In the ED she underwent extensive evaluation. BP 136/72, HR 92, RR 18, T 98F, 100% on RA. CBC, CMP, Coag panel significant for WBC 10.8, bicarb 21, BUN 40, glu 133. Mag 1.5. Lactic acid 3.6. CPK < 20. UA large LE. EtOH neg. EKG NSR. Patient is admitted for UTI and inability to take care of ADL and IADLs. 05/27 Patient was seen and examined. No complaints. CBC and CMP significant for RBC 3.36, Hg 10.4, Hct 31.9, glu 130. BCx positive for presumptive staph epi. U Cx Aerococcus urinae. 05/28 Patient was seen and examined. Continues to complain of weakness and cons tipation, last BM last Fri. Discussed with Case management, plans for AFC on Friday. 05/29 Patient was seen and examined. No new complaints. Had a hard BM yesterday. General: non toxic, no distress, appears at stated age Derm: warm, dry Head: atraumatic, normocephalic, symmetric Eyes: EOMI, no lid lag, anicteric sclera Mouth: no lip lesion, mucus membranes moist Cardiovascular: S1S2 reg, no murmur Lungs: Clear to auscultation bilaterally, no rhonchi, no rales , no accessory muscle use Ext: no gross muscle atrophy, no edema, no contractures Neuro: no focal neuro deficits Psych: Alert, oriented, appropriate affect Based on my assessment of this patient, this patient meets a high complexity level of care. Debility and lower extremity weakness Bacteremia UTI Hypertension Dyslipidemia Hypothyroidism Diabetes mellitus Resolved: Lactic acidosis, prerenal azotemic Bacteremia likely contaminant. Fall precautions. PT and OT consult. Rocephin 1g IV BID for UTI. DC IVF. Continue home medications. Case management on board. Anticipate DC on Friday. CODE STATUS: NO CODE. DVT Prophylaxis: Lovenox SQ. GI Prophylaxis: Designated medical POA if patient is not able to make medical decisions for themselves: Daughters I have reviewed the following sql server consultant notes: I have reviewed the results of the following tests: I have ordered the following tests: I have discussed the care of this patient with the following independent historian: I have independently interpreted the following test below: I have discussed the management of this patient with the following physician: Objective - Vital Signs Vital signs: Vital Signs Temp 97.7 F 05/29/24 13:25 Pulse 85 05/29/24 13:25 Resp 20 05/29/24 13:25 BP 105/61 05/29/24 13:25 Pulse Ox 100 05/29/24 13:25 FiO2 Intake & Output 05/28/24 05/29/24 05/29/24 18:59 06:59 18:59 Intake Total 1050 540 Balance 1050 540 Intake: Intake, IV Titration 50 Amount cefTRIAXone 1 gm In 50 Sodium Chloride 0.9% 50 ml @ 100 mls/hr IVPB Q12HR [facility] Rx#:[id number] Oral 1000 540 Other: Voiding Method Bedside Commode Bedside Commode Bedside Commode # Voids 3 2 # Bowel Movements 2 - Labs CBC & Chem 7: 05/27/24 06:09 05/27/24 06:09 Labs: Abnormal Lab Results - Last 24 Hours (Table) 05/28/24 Range/Units 21:19 POC Glucose (mg/dL) 213 H (70-110) mg/dL Microbiology - Last 24 Hours (Table) 05/25/24 16:42 Blood Culture Gram Stain - Final Blood Blood Culture - Final Staphylococcus epidermidis Molecular ID
--- NOTE | 2024-05-30 10:29 | P.PN ---
Subjective Progress Note Date: 05/30/24 88 year old F with PMH of HTN, HLD, Hypothyroidism, DM presents to the ED. She reports progressive difficulties dealing with her ADLs and IADLs. Reports dysuria and generalized weakness. Ambulates with the aid of a walker. Lives alone. In the ED she underwent extensive evaluation. BP 136/72, HR 92, RR 18, T 98F, 100% on RA. CBC, CMP, Coag panel significant for WBC 10.8, bicarb 21, BUN 40, glu 133. Mag 1.5. Lactic acid 3.6. CPK < 20. UA large LE. EtOH neg. EKG NSR. Patient is admitted for UTI and inability to take care of ADL and IADLs. 05/27 Patient was seen and examined. No complaints. CBC and CMP significant for RBC 3.36, Hg 10.4, Hct 31.9, glu 130. BCx positive for presumptive staph epi. U Cx Aerococcus urinae. 05/28 Patient was seen and examined. Continues to complain of weakness and cons tipation, last BM last Fri. Discussed with Case management, plans for AFC on Friday. 05/29 Patient was seen and examined. No new complaints. Had a hard BM yesterday. 05/30 Patient was seen and examined. No new complaints. Plans for AFC tomorrow. General: non toxic, no distress, appears at stated age Derm: warm, dry Head: atraumatic, normocephalic, symmetric Eyes: EOMI, no lid lag, anicteric sclera Mouth: no lip lesion, mucus membranes moist Cardiovascular: S1S2 reg, no murmur Lungs: Clear to auscultation bilaterally, no rhonchi, no rales , no accessory muscle use Ext: no gross muscle atrophy, no edema, no contractures Neuro: no focal neuro deficits Psych: Alert, oriented, appropriate affect Based on my assessment of this patient, this patient meets a high complexity level of care. Debility and lower extremity weakness Bacteremia UTI Hypertension Dyslipidemia Hypothyroidism Diabetes mellitus Resolved: Lactic acidosis, prerenal azotemic Bacteremia likely contaminant. Fall precautions. PT and OT consult. Cefdinir 300 mg PO BID. Continue home medications. Case management on board. Anticipate DC on Friday. CODE STATUS: NO CODE. DVT Prophylaxis: Lovenox SQ. GI Prophylaxis: Designated medical POA if patient is not able to make medical decisions for themselves: Daughters I have reviewed the following wine consultant notes: I have reviewed the results of the following tests: I have ordered the following tests: I have discussed the care of this patient with the following independent historian: I have independently interpreted the following test below: I have discussed the management of this patient with the following physician: Objective - Vital Signs Vital signs: Vital Signs Temp 98.2 F 05/30/24 07:18 Pulse 61 05/30/24 07:18 Resp 16 05/30/24 07:18 BP 134/80 05/30/24 07:18 Pulse Ox 98 05/30/24 07:18 FiO2 Intake & Output 05/29/24 05/30/24 05/30/24 18:59 06:59 18:59 Intake Total 492 300 Balance 492 300 Intake: Oral 492 300 Other: Voiding Method Bedside Commode Bedside Commode # Voids 4 1 - Labs CBC & Chem 7: 05/27/24 06:09 05/27/24 06:09 Labs: Microbiology - Last 24 Hours (Table) 05/25/24 16:42 Blood Culture Gram Stain - Final Blood Blood Culture - Final Staphylococcus epidermidis Molecular ID
[2024-05-30] MEDS: MAGNESIUM HYDROXIDE 2,400 MG/30 ML CUP PO PRN (18:00)
[2024-05-30] MEDS: CEFDINIR 300 MG CAP PO SCH (20:35)
[2024-05-31] MEDS: ERGOCALCIFEROL 1,250 MCG (50,000 IU) CAPSULE PO SCH (08:56)
[2024-05-31 12:28] VITALS: BP 132/81; PULSE 79; RESP 16; TEMP 97.9
--- NOTE | 2024-05-31 15:12 | P.DS ---
Providers Date of admission: 05/26/24 12:42 Expected date of discharge: 05/31/24 Attending physician: Nicol Lin MD Primary care physician: [facility] Course: 88 year old F with PMH of HTN, HLD, Hypothyroidism, DM presents to the ED. She reports progressive difficulties dealing with her ADLs and IADLs. Reports dysuria and generalized weakness. Ambulates with the aid of a walker. Lives alone. In the ED she underwent extensive evaluation. BP 136/72, HR 92, RR 18, T 98F, 100% on RA. CBC, CMP, Coag panel significant for WBC 10.8, bicarb 21, BUN 40, glu 133. Mag 1.5. Lactic acid 3.6. CPK < 20. UA large LE. EtOH neg. EKG NSR. Patient is admitted for UTI and inability to take care of ADL and IADLs. Blood culture grew 1/2 S. epi thought to be a contaminant. UCx grew Aerococcus urinae. 05/27 Patient was seen and examined. No complaints. CBC and CMP significant for RBC 3.36, Hg 10.4, Hct 31.9, glu 130. BCx positive for presumptive staph epi. UCx Aerococcus urinae. 05/28 Patient was seen and examined. Continues to complain of weakness and constipation, last BM last Fri. Discussed with Case management, plans for AFC on Friday. 05/29 Patient was seen and examined. No new complaints. Had a hard BM yesterday. 05/30 Patient was seen and examined. No new complaints. Plans for AFC tomorrow. 05/31 Patient was seen and examined. No new complaints. Plans for discharge to AFC today. Discharge Plan: Ceftin x 4 days. Continue all home medications. Follow up with PCP within 1-2 days of discharge. General: non toxic, no distress, appears at stated age Derm: warm, dry Head: atraumatic, normocephalic, symmetric Eyes: EOMI, no lid lag, anicteric sclera Mouth: no lip lesion, mucus membranes moist Cardiovascular: S1S2 reg, no murmur Lungs: Clear to auscultation bilaterally, no rhonchi, no rales , no accessory muscle use Ext: no gross muscle atrophy, no edema, no contractures Neuro: no focal neuro deficits Psych: Alert, oriented, appropriate affect Discharge Diagnosis: Debility and lower extremity weakness Bacteremia likely contaminant UTI Hypertension Dyslipidemia Hypothyroidism Diabetes mellitus Resolved: Lactic acidosis, prerenal azotemia This complex discharge took 35 minutes to complete. Patient Condition at Discharge: Stable Plan - Discharge Summary Discharge Rx Participant: Yes New Discharge Prescriptions: New cefuroxime axetiL [Ceftin] 500 mg PO BID #8 tab Acetaminophen Tab [Tylenol] 650 mg PO Q6HR PRN tab PRN Reason: Mild Pain Or Fever > 100.5 Sennosides-Docusate Sodium [Senokot-S] 1 each PO DAILY #30 tab Continue Pioglitazone [Actos] 15 mg PO DAILY #30 tab Aspirin 81 mg PO DAILY #30 tab Docusate [Colace] 100 mg PO HS #30 cap Furosemide [Lasix] 20 mg PO Q2D #15 tab Ascorbic Acid [Vitamin C] 500 mg PO DAILY #30 tab metFORMIN HCL [Glucophage] 500 mg PO HS #30 tab Levothyroxine Sodium [Synthroid] 100 mcg PO MOTUWETHFRSA #24 tab Ergocalciferol [Vitamin D2 (1250 Mcg = 83828 Iu)] 1,250 mcg PO Q14D #2 cap lisinopriL [Zestril] 10 mg PO DAILY #30 tab Simvastatin [Zocor] 40 mg PO HS #30 tab Discontinued Apple Cider Vinegar 500mg 500 mg PO DAILY Discharge Medication List Acetaminophen Tab [Tylenol] 650 mg PO Q6HR PRN tab 05/29/24 [Rx] Ascorbic Acid [Vitamin C] 500 mg PO DAILY #30 tab 05/29/24 [Rx] Aspirin 81 mg PO DAILY #30 tab 05/29/24 [Rx] Docusate [Colace] 100 mg PO HS #30 cap 05/29/24 [Rx] Ergocalciferol [Vitamin D2 (1250 Mcg = 47534 Iu)] 1,250 mcg PO Q14D #2 cap 05/29/24 [Rx] Furosemide [Lasix] 20 mg PO Q2D #15 tab 05/29/24 [Rx] Levothyroxine Sodium [Synthroid] 100 mcg PO MOTUWETHFRSA #24 tab 05/29/24 [Rx] Pioglitazone [Actos] 15 mg PO DAILY #30 tab 05/29/24 [Rx] Sennosides-Docusate Sodium [Senokot-S] 1 each PO DAILY #30 tab 05/29/24 [Rx] Simvastatin [Zocor] 40 mg PO HS #30 tab 05/29/24 [Rx] cefuroxime axetiL [Ceftin] 500 mg PO BID #8 tab 05/29/24 [Rx] lisinopriL [Zestril] 10 mg PO DAILY #30 tab 05/29/24 [Rx] metFORMIN HCL [Glucophage] 500 mg PO HS #30 tab 05/29/24 [Rx] Follow up Appointment(s)/Referral(s): Nicolás Morales DO [Primary Care Provider] - 1-2 days (Please call office and make follow up appointment ) Discharge Disposition: HOME SELF-CARE
== END 2024-05-31 14:42 | disposition home health service (06) | DRG 690 ==
LOC: EC 12:54 → 5NMEDONC 05-26 12:42
PROVIDERS: ADMIT Family Medicine; ATTEND Family Medicine
DX: N39.0 Urinary tract infection, site not specified (principal); E87.20 Acidosis, unspecified; E11.9 Type 2 diabetes mellitus without complications; E03.9 Hypothyroidism, unspecified; I10 Essential (primary) hypertension; E78.5 Hyperlipidemia, unspecified; K59.00 Constipation, unspecified; R53.81 Other malaise; Z79.890 Hormone replacement therapy; Z79.82 Long term (current) use of aspirin; Z79.84 Long term (current) use of oral hypoglycemic drugs; Z91.040 Latex allergy status; Z87.891 Personal history of nicotine dependence; Z79.899 Other long term (current) drug therapy; Z85.3 Personal history of malignant neoplasm of breast; Z90.710 Acquired absence of both cervix and uterus
CPT/HCPCS: 36415; 80048; 80053; 80320; 81001; 82550; 83605; 83735; 85025; 87040; 87077; 87086; 87186; 87635; 93005; 96361; 96365; 96375; 99285